=== PATIENT | female | born 1975 | race Caucasian/White ===

== ENCOUNTER 2021-03-05 07:55 | Outpatient (CLI) | payer BC, OTHER, SELFPAY ==
--- NOTE | ~2021-03-05 | CT_ITS ---
EXAMINATION: CT soft tissue neck w con EXAM DATE: 03/05/2021 08:31 INDICATION: Chronic sialoadenitis. Right facial, jaw, ear swelling. TECHNIQUE: Spiral CT of the neck was performed following intravenous injection of 75 mL Omnipaque 350 . Axial, coronal and sagittal images were reviewed. The dose-length product (DLP) for this examinat ion was 289.65 mGy-cm. The exposure was tailored according to patient size (auto mA exposure control ), and iterative reconstruction (ASIR) was used as additional dose reduction technique. There is no prior study for comparison. FINDINGS: No calcified sialolithiasis identified. Small right thyroid nodule. The submandibular and parotid glands are symmetric. There is no cervical lymphadenopathy. There are no masses identifie d. The superior mediastinum is unremarkable. The airway is unremarkable. Parapharyngeal and pr e-glottic fat planes are preserved. The opacified vasculature is patent. The orbits are unremarka ble. Visualized sinuses and mastoid air cells are well aerated. Lung apices unremarkable. Cervic al spine unremarkable. IMPRESSION: Small right thyroid lobe nodule. Otherwise unremarkable CT neck exam. Reviewed, dictated and finalized at location A. IMPRESSION: Small right thyroid lobe nodule. Otherwise unremarkable CT neck nati corey
== END 2021-03-05 07:56 | disposition home or self-care (01) ==
LOC: CHSIMG 08:00
PROVIDERS: PCP Internal Medicine; Visit Provider Internal Medicine
DX: K11.23 Chronic sialoadenitis (principal)
CPT/HCPCS: 70491; Q9967

== ENCOUNTER 2024-08-16 10:24 | Outpatient (RCR) | payer OTHER, SELFPAY ==
--- NOTE | 2024-08-16 15:54 | OPREHPOC ---
Outpatient Therapy Plan of Care This is a Multidisciplinary Plan of Care that may contain components documented by all disciplines (PT, OT, and ST.) PT Problem 1 PT Problem #1 Knowledge Deficit PT Goal 1 Goal / Goal Update Independent with HEP Target Visit 2 PT Problem 2 PT Problem #2 Impaired Strength PT Goal 1 Goal / Goal Update 1. Improve abdominal strength to 4/5. 2. Improve hip flexion strength to 5/5. 3. Improve hip abduction strength to 5/5. Target Visit 12 PT Problem 3 PT Problem #3 Impaired Functional Mobility PT Goal 1 Goal / Goal Update 1. Improve 5x sit to stand to 8 seconds 2. Pt to independently move from supine to sitting without pain for excessive tension on chest or upper extremities Target Visit 12
--- NOTE | 2024-08-16 15:54 | PTOPEVAL1 ---
Assessment and note entered by Mariela Cancino, PT Evaluation Information Assessment Status Evaluation Diagnosis Malignant neoplasm of lower-outer quadrant of left breast ICD-10 Condition Codes (PT) Weakness R53.1 Onset September 14, 2023 Subjective Information Mrs. Ramos presents to physical therapy for core strengthening to prepare for breast reconstruction surgery. She was diagnosed with breast cancer in September 2023 and has undergone 4 total surgeries in the last year for mastectomy and reconstruction . She currently has bilateral inserted tissue expanders and is having an additional surgery in November to complete the breast reconstruction process. She states the skin and muscles over her chest are very thin and her expanders have burst out of the chest in the past and is under movement and lifting restrictions from her physician, states I can't raise my arms above my shoulders and I can't lift more than a jug of milk. She is limited to lying on her back but sleeps reclined as she cannot move from supine to sitting without assistance. She recently got clearance to drive and states she is able to shower independently despite motion restrictions. Mrs. Ramos reports she is typically an active person but as of late she's been sedentary and has been trying to gait weight for her upcoming surgery. She reports her surgeon needs her to gain weight so there is enough abdominal fat to use for the reconstruction, and that her abdominals need to be strong to minimize weakness post- surgery. She states her main PT goal is to improve her core strength so she can move from lying on her back to sitting on her own. Reported Pain Level Pain Score 0: Self Report Additional Pain Score Comments Pt denies pain this date, states she has pain only when I move when I'm not supposed to Assessment PT Clinical Summary Mrs. Ramos is a 48 year old female presenting to physical therapy prior to breast reconstruction surgery in November. She was diagnosed with breast cancer in September 2023 and has undergone 4 surgeries in the last year for bilateral mastectomy and tissue rn manager insertion. She will be having another surgery in November of this year to finish the reconstruction process. She demonstrates core and hip weakness and and experiences difficulty with functional mobility tasks and ADLs due to upper extremity motion and lifting restrictions, as well as positioning restrictions when lying in bed. Her main goal for PT is to get stronger so she can move from lying on her back to sitting without help. Skilled PT services are indicated to improve core and hip strength prior to surgery to optimal surgical outcome and improve functional mobility. Plan of Care Interventions Gait Training,Manual Therapy,Neuro Re-education, Patient/Caregiver Education,Therapeutic Activities ,Therapeutic Exercise PT Services Indicated Yes Treatment Frequency and 2x weekly for 12 visits Duration These treatments will address the objective and functional deficits as defined above. The patient will be advanced safely and appropriately in order for the patient to progress towards his/her prior level of function. Additional exercises will be introduced and as well as a comprehensive home exercise program upon discharge, if needed, ?to ensure carryover of functional gains achieved in the clinic. This treatment plan has been reviewed and agreement upon by the patient.
--- NOTE | 2024-08-26 16:53 | PCPTNOTE ---
I reviewed the License Pending Therapist's documentation and agree with the findings.
--- NOTE | 2024-08-28 16:52 | PCPTNOTE ---
Pt entered clinic for her PT visit with complaints of an off feeling accompanied by lightheadness and headache, reported she feels like her blood pressure is high. States she felt fine upon waking up this morning but as the day went on she continued to feel worse. She contacted her doctor's office today to ask if this could be due to her medications, and she was told that it was not due to meds and pt scheduled an appointment to be seen by her doctor on Monday. Assessed pt's BP at start of session in sitting and it was 169/93. Reassessed after 5 minutes and BP was 163/99. At this time pt is not appropriate for PT treatment due to abnormally high BP. Escorted pt to her doctor's office across the street, office staff notified of BP readings and pt remained at the office for further assessment by nursing staff. Plan to follow up with pt and her doctor regarding abnormal vitals and pt to resume PT treatment pending clearance from her doctor.
--- NOTE | 2024-09-02 16:33 | PCPTNOTE ---
I reviewed the License Pending Therapist's documentation and agree with the findings.
--- NOTE | 2024-10-10 17:00 | OPREHPOC ---
Outpatient Therapy Plan of Care This is a Multidisciplinary Plan of Care that may contain components documented by all disciplines (PT, OT, and ST.) PT Problem 1 PT Problem #1 Knowledge Deficit PT Goal 1 Goal / Goal Update Independent with HEP Target Visit 2 Progress Met PT Problem 2 PT Problem #2 Impaired Strength PT Goal 1 Goal / Goal Update 1. Improve abdominal strength to 4/5. 2. Improve hip flexion strength to 5/5. 3. Improve hip abduction strength to 5/5. Target Visit 12 Progress Met PT Problem 3 PT Problem #3 Impaired Functional Mobility PT Goal 1 Goal / Goal Update 1. Improve 5x sit to stand to 8 seconds. met 2. Pt to independently move from supine to sitting without pain for excessive tension on chest or upper extremities Target Visit 12 Progress Partially Met
--- NOTE | 2024-10-10 17:00 | PTOPDC ---
Assessment and note entered by JT File, PT Evaluation Information Assessment Status Discharge Diagnosis Malignant neoplasm of lower-outer quadrant of left breast ICD-10 Condition Codes (PT) Weakness R53.1 Onset September 14, 2023 Subjective Information patient reports she has no pain at rest today. she reports going from supine to sitting still causes pain/pulling across her chest. she reports she has her 5th reconstruction in the next coming months. she will be back therapy after she is healed to improve her core strength and shoulder mobility. Reported Pain Level Pain Score 0: Self Report Assessment PT Clinical Summary mrs. levine presents to skilled PT for her 12th skilled therapy visit today. she displays improved core strength, improve hip strength, and improved cv and activity endurance. however, she still has pain across the chest when going from supine to sitting. she is going to have her 5th reconstruction in the next month or 2. she will then return to skilled PT after she is healed for core strengthening again. at this time, she will DC skilled PT, and continue with HEP independent at home. Plan of Care PT Services Indicated Yes
== END 2024-10-10 17:06 | disposition home or self-care (01) ==
LOC: CHSPT 10:24
DX: C50.512 Malignant neoplasm of lower-outer quadrant of left female breast (principal); Z17.0 Estrogen receptor positive status [ER+]; R53.1 Weakness
CPT/HCPCS: 97110; 97112; 97161; 97530

== ENCOUNTER 2025-02-10 14:01 | Outpatient (CLI) | payer OTHER, SELFPAY ==
--- NOTE | ~2025-02-10 | DEXA_ITS ---
Bone Density Report Name: SARAH MILTON Age: 49 Sex: Female Ethnicity: White Date of : 1975 Indication: postmenopausal; cancer; Referring Provider: GERMAN CANTRELL Study: Bone densitometry was performed. Exam Date: February 10, 2025 Accession number: [id number] Bone Density: Region BMD T-score Z-score Classification AP Spine(L1-L4) 1.065 0.2 0.7 Normal Femoral Neck (Left) 0.998 1.3 1.9 Normal Total Hip (Left) 1.088 1.2 1.6 Normal Femoral Neck (Right) 1.043 1.7 2.3 Normal Total Hip (Right) 1.069 1.0 1.4 Normal Total Hip Mean 1.079 1.1 1.5 Normal World Health Organization criteria for BMD impression classify patients as: Normal (T-score at or above -1.0), Osteopenia (T-score between -1.0 and -2.5), or Osteoporosis (T-score at or below -2.5). 10-year Fracture Risk: FRAX not reported because: All T-scores for Spine Total, Hip Total, Femoral Neck at or above -1.0 Clinical Information Provided by Patient: Has used the following medications: Vitamin D, Calcium, tamoxifen Has the following medical conditions: Cancer Patient maximum height was 67 Menopause Age: 48 No regular weight bearing exercise Drinks caffeinated beverages Onset of menses at age 15 Number of children 3 Impression: The patient has normal bone mass. Discussion: BONE DENSITY IS ABOVE THE MINIMUM DESIRABLE LEVEL AT ALL SKELETAL SITES TESTED. This patient?s bone mineral density is above the minimum desirable level (T-score -1.0 or better) at all sites measured. The patient should follow a healthful lifestyle (good nutrition with adequate calcium and vitamin D, and appropriate weight-bearing exercise). Follow-Up: Consider repeating this study in 5 years or sooner if there is some new clinical indication. Reported by: PATRICIA on 02/10/2025 4:13:00 PM. Reviewed, dictated and finalized at location A.
--- OUTSIDE RECORDS SUMMARY | 2025-02-10 14:19 | XMS_ITS | Encounter Summary ---
Author Organization [facility] Healthcare Address [address] [place] [address] Care Team Providers Care Chocolate Temperer Name Role Phone Ashley Shukla MD Primary Care Provider + [phone] Reason for Visit * Reason Comments PT Treatment * Consultation (Routine) - Closed Specialty Diagnoses / Procedures Referred By Contac t Referred To Contact Physical Therapy Diagnoses Malignant neoplasm of lower-outer quadrant of left breast of female, estrogen receptor positive (HCC) Chyna Gunter MD [address] [facility] [phone] [place] [address] Phone: tel: fax: [facility] [address] [place] [address] fax: Referral ID Status Reason Start Date Expiration Date V isits Requested Visits Authorized [id number] Closed Specialty Services Required 01/15/2025 02/14/2026 1 1 Encounter Details Date Type Department Care Team (Late st Contact Info) Description 01/24/2025 11:30 AM CDT Therapy [facility] at [place] [address] [place] [address] Medical Office [address] [place] [address] Digna Valdivia, PT Malignant neoplasm of lower-outer quadrant of left breast of female, estrogen receptor positive (HCC) (Primary Dx); S/P breast reconstruction Social History Tobacco Use Types Packs/Day Years Used Date Smoking Tobacco: Never Passive Smoke Exposure: Never Smokeless Tobacco: Never Alcohol Use Standard Drinks/Week Comments No 0 (1 standard drink = 0.6 oz pur e alcohol) AUDIT-C Answer Date Recorded Q1: How often do you have a drink containing alc ohol? Monthly or less 12/09/2024 Q2: How many drinks containi ng alcohol do you have on a typical day when you are drinking? 1 or 2 12/09/2024 Q3: How often do you have si x or more drinks on one occasion? Never 12/09/2024 Personal Safety Answer Date Recorded Have you ever been in or are you currently in a harmful physical or emotional relationship or is someone making you feel afraid or unsafe? Denies 12/09/2024 Comments No Sex and Gender Information Value Date Recorded Sex Assigned at Not on file Legal Sex Female 10:38 AM CDT Gender Identity Not on file Sexual Orientation Not on file documented as of this encounter Progress Notes * Digna Valdivia, PT - 01/24/2025 11:30 AM CDT [facility]: [facility] Physical Therapy Visit Patient Name: Rod Ramos Date of : 1975 Age/Sex: 49 y.o. / female Referring Practitioner: Chyna Gunter MD Follow-Up: Surgery scheduled 03/11/2025 Diagnosis(es): 1. Malignant neoplasm of lower-outer quadrant of left breast of female, estrogen receptor positive (HCC) 2. S/P breast reconstruction Date of Onset: 12/09/2024 Progress Report Period: 01/22/2025- Visit #: 2 Progress Report Due: Visit #10 Date: 01/24/2025 Start Time: 11:35 a.m. End Time: 12:34 p.m. Start Pain: 0/10 End Pain: 0/10 SUBJECTIVE: Patient reports she is looking forward to upcoming surgery 03/11/2025 and is hopeful this is for final surgery. Patient reports home program compliance and decreased feelings of edema following last session. OBJECTIVE: Patient completing diaphragmatic breathing with good form Patient with difficulty completing supine chest stretch due to increased feelings of tightness and pulling on incisions at chest and deferred this exercise at this time Patient completing home program with verbal and manual cues 25% of the time TREATMENT: Timed Treatment: Therapeutic Exercise for 15 minutes: Home exercise program issued and reviewed with handouts. Patient offered e-mail copy of exercises and voiced understanding of exercises. Exercise/ Activity Date: 01/22/25 Date: 01/24/25 Date: Date: Date: Diaphragmatic breathing 5 minutes 5 minutes Seated bilateral shoulder external rotation hands behind head 5x5s Supine shoulder external rotation with gentle traction to axilla 5x5s Deferred Self soft tissue mobilization of surgical incision 5 minutes 3 minutes Leg side with neutral spine stabilization x10 Bent knee fall out with neutral spine stabilization x10 Gentle lymphatic release stimulating axillary area and neck 5 minutes Flowsheet Gloria: X = performed, x = times/multiply, s = seconds, ea = each, st = stretch HEP 01/24/2025: From day 3 (24 Jan 2025) to 161 (01 Jul 2025): [1] Cording (Sets: 1 Reps: 7 Hold: 2s) [2] Breathing correctly, hands on ribs in supine; 01 (Sets: 1 Reps: 10) [3] Abdominal massage (skin), supine (Sets: 1 Reps: 1 Duration: 3m) [4] Supine Leg Slide (Sets: 1 Reps: 1 Duration: 10s) [5] Knee fall out Core/abdominal stabilization, supine; 01 (Sets: 1 Reps: 1) Manual Therapy- 29 min- gentle soft tissue mobilization with circular patterns to area superior andinferior to abdominal incision. Physical therapist provided soft tissue mobilization to area superior and inferior to abdominal incision and circular cupping strokes and with C&S strokes. Gentle soft tissue mobilization with movement to bilateral shoulders into shoulder flexion, abduction, and s caption with over pressure to anterior distal to axilla as not to stress healing incisions to chest. Supine stimulation of lymphatic system to abdominals with diaphragmatic breathing performed. Gentle soft tissue mobilization of abdomen with movement of bilateral lower extremities in supine. Gentlelymphatic stimulation to cervical and axillary lymph nodes. Un-timed Treatment: none No modalities performed at this date Total of Timed Treatment Codes: 54 minutes Total Treatment Time: 54 minutes ASSESSMENT: Patient tolerating diaphragmatic breathing and gentle soft tissue mobilization to abdomen well withdecreased feelings of tightness and swelling. Patient tolerated addition of gentle lymphatic stimulation to cervical and axillary lymph nodes well today with increased feeling of well-being after session. Patient compliance is evident with home program and patient is progressing well towards short-term goal 1. Patient tolerated advanced stretching and strengthening with addition of bent knee fallout and supine leg slides with attention to neutral lumbar spine with activity. Impression: Patient is a 49 y.o. female referred by Chyna Gunter to physical therapy for the followin. S/P breast reconstruction 2. Malignant neoplasm of lower-outer quadrant of left breast of female, estrogen receptor positive (HCC) Physical Impairments: AROM, Posture, and Pain Functional Limitations: Lymphatic drainage, Overhead reaching, and lifting and care of self Factors Impacting Physical Therapy: Comorbidities impacting physical therapy treatment: Personal factors: list Persons Involved:Patient Patient/Patient Family Understands and Agrees: Yes Prognosis: good Goals: Short Term Goals: 6 weeks 1. Patient to be independent with home program for self-management of symptoms.; progressing 2. Patient to improve bilateral shoulder flexion to greater than or equal to 100?? to increase easewith reaching tasks.; Initiated 3. Patient to improve bilateral shoulder abduction to greater than or equal to 90?? to improve capacity for self-care and ADLs.; Initiated 3. Patient to improve edema to level of umbilicus circumferential measurement to decrease by 2 cm.;Initiated Flat Folder Goals: 12 weeks 1. Patient to improve active range of motion bilateral shoulder flexion to greater than or equal to150?? to improve capacity for homemaking tasks.; Initiated 2. Patient to improve active range of motion bilateral shoulder abduction to greater than or equal to 130?? to improve capacity for dressing and bathing tasks periods; Initiated 3. Patient to improve edema to level of umbilicus circumferential measurement to decrease by 3.5 cm.; Initiated 4. Patient to improve functional capacity for upper extremity movement as evidenced by improved DASH score to less than or equal to 30% dysfunction.; Initiated PLAN: Continue skilled physical therapy per plan of care. Consider advancing gentle lower abdominal work with soft tissue mobilization. Frequency/Duration: 1-2 times per week for 12 weeks. Patient will receive the following treatments: [x] Home Exercise Program [x] Therapeutic Exercise [x] Therapeutic Activity [x] Manual Therapy PRN for manual lymphatic drainage, compression bandaging and/or soft tissue mobilization to address soft tissue restriction [] Gait Training PRN [x] Neuromuscular Re-Education PRN [x] Modalities PRN [x] Patient education on function and lymphedema management Digna Valdivia, PT [facility] MEDICAL OFFICE BUILDING [address] [facility] [address] [facility] MEDICAL OFFICE BUILDING [address], [address] [facility] [place] [address] Dept: [phone] Dept documented in this encounter Plan of Treatment Upcoming Encounters Date Type Department Care Team (Late st Contact Info) Description 03/11/2025 1:10 PM CDT Hospital Encounter [facility] [address] [place] [address] Chyna Gunter MD [id number] [place] [address] 03/11/2025 1:10 PM CDT - 03/11/2025 3:20 PM CDT Surgery [facility]) [address] [place] [address] Chyna Gunter MD [address] [facility] [phone] [place] [address] EXCISION CYST/LESION/MASS - TRUNK- bilateral dog ear excision Scheduled Procedures Name Priority Associated Diagnoses Date/Ti me EXCISION CYST/LESION/MASS - TRUNK H/O bilateral mastectomy 03/11/2025 1:10 PM CDT FAT GRAFTING H/O bilateral mastectomy 03/11/2025 1:10 PM CDT documented as of this encounter Visit Diagnoses Diagnosis H/O bilateral mastectomy- Primary Malignant neoplasm of lower-outer quadrant of left breast of female, estrogen receptor positive (HCC)- Primary S/P breast reconstruction Breast replaced by other means H/O bilateral mastectomy documented in this encounter Care Teams Chocolate Temperer Relationship Specialty Start Date End Date Ashley Shukla MD [address] [place] [address] PCP - General 05/31/17 documented as of this encounter
--- OUTSIDE RECORDS SUMMARY | 2025-02-10 14:19 | XMS_ITS | Encounter Summary ---
Author Organization [facility] Address [address] [place] [address] Phone Care Team Providers Care Acquisitions Assistant Name Role Phone Ashley Shukla MD Primary Care Provider + [phone] Encounter Details Date Type Department Care Team (Latest Contact Info) Description 12/28/2023 Orders Only [facility] Scanning, Provider Social History Tobacco Use Types Packs/Day Years Used Date Smoking Tobacco: Never Smokeless Tobacco: Never Alcohol Use Standard Drinks/Week Comments No 0 (1 standard drink = 0.6 oz pur e alcohol) AUDIT-C Answer Date Recorded Q1: How often do you have a drink containing alc ohol? Monthly or less 12/04/2023 Q2: How many drinks containi ng alcohol do you have on a typical day when you are drinking? 1 or 2 12/04/2023 Q3: How often do you have si x or more drinks on one occasion? Never 12/04/2023 Personal Safety Answer Date Recorded Have you ever been in or are you currently in a harmful physical or emotional relationship or is someone making you feel afraid or unsafe? Denies 12/04/2023 Comments No Sex and Gender Information Value Date Recorded Sex Assigned at Not on file Legal Sex Female 10:38 AM CDT Gender Identity Not on file Sexual Orientation Not on file documented as of this encounter Plan of Treatment Upcoming Encounters Date Type Department Care Team (Late Contact Info) Description 03/11/2025 1:10 PM CDT Hospital Encounter [facility] ([facility]) [address] [place] [id number] Chyna Gunter MD [address] [facility] [phone] [place] [address] 03/11/2025 1:10 PM CDT - 03/11/2025 3:20 PM CDT Surgery [facility] ([facility]) [address] [place] [address] Chyna Gunter MD [address] [facility] [phone] [place] [address] EXCISION CYST/LESION/MASS - TRUNK- bilateral dog ear excision Scheduled Procedures Name Priority Associated Diagnoses Date/Ti me EXCISION CYST/LESION/MASS - TRUNK H/O bilateral mastectomy 03/11/2025 1:10 PM CDT FAT GRAFTING H/O bilateral mastectomy 03/11/2025 1:10 PM CDT documented as of this encounter Procedures Procedure Name Priority Date/Time Associated Diagnosis Comments SCAN - PATHOLOGY 12/28/2023 documented in this encounter Results * SCAN - PATHOLOGY (12/28/2023) us Provider Scanning Final Result documented in this encounter Visit Diagnoses Not on filedocumented in this encounter Care Teams Acquisitions Assistant Relationship Specialty Start Date End Date Ashley Shukla MD [address] [place], [place] [id number] PCP - General 05/31/17 documented as of this encounter
--- OUTSIDE RECORDS SUMMARY | 2025-02-10 14:19 | XMS_ITS | Encounter Summary ---
Author Organization [facility] Address [address] [facility] [address] [place] [address] Phone Care Team Providers Care Liquefied Petroleum Gasfitter Name Role Phone Ashley Shukla MD Primary Care Provider + [phone] Encounter Details Date Type Department Care Team (Late st Contact Info) Description 02/10/2025 11:00 AM CDT Office Visit [facility] [address] [facility] 6th [place] [address] [place] [address] Chyna Gunter MD [address] [facility] [phone] [place] [address] Malignant neoplasm of lower-outer quadrant of left breast of female, estrogen receptor positive (HCC) (Primary Dx) Social History Tobacco Use Types Packs/Day Years [...] as of this encounter Progress Notes * Chyna Gunter MD - 02/10/2025 11:00 AM CDT Patient Name: Rod Ramos : 1975 TAMMI: 02/10/25 Referring Physician: Ashley Shukla MD HPI: History of Present Illness Rod Ramos is a 49 year old female who presents for follow-up regarding her upcoming revision surgery. She feels better and notes that her skin was previously shiny and tight, but she has lost fluid, which has improved her condition. She has been undergoing lymphatic massage on her abdomen, which she feels has been beneficial, resulting in a loss of two centimeters in fluid. She has not had any massage on her chest. She mentions that she has been sleeping on her back as sleeping on her side is uncomfortable due toa sensation of shifting. She is currently using a surgical bra and sometimes uses ABD pads, but shehas noticed that the pads cause her skin to become purple and red. She has stopped using the ABD pads due to this reaction. 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 She wants to return to work and is concerned about the intensity of her work post-surgery. Physical Examination: Physical Exam SKIN: Incision healed without issues. Flaps are softer and skin is more relaxed. One area of skin is more purple compared to others. Assessment/Plan: She is healing well. Is ready for her upcoming revision surgery next month. Assessment & Plan Post-surgical follow-up Ultrasound reassuring. Incisions and scars healed well. Flaps softening, skin relaxing. - Plan revision surgery in a month: excision of small abdominal areas, additional liposuction, lipofilling for breast. - Consider multiple fat grafting sessions for fullness. - Avoid pressure on breast and belly. - Continue lymphatic massage on belly only. - Sleep on back. - Use surgical bra, avoid ABD pads. 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 Contact dermatitis Possible early stage contact dermatitis from ABD pads, causing skin discoloration and sensitivity. - Discontinue use of ABD pads. I have reviewed and edited the entirety of the note to reflect my history, exam, and decision making. Ileana Gunter MD, PhD, [facility] buyer intern Division of Plastic & Reconstructive Surgery [facility] documented in this encounter Plan of Treatment Upcoming Encounters Date Type Department Care Team (Late st Contact Info) Description 03/11/2025 1:10 PM CDT Hospital Encounter [facility] [address] [place] [address] Chyna Gunter MD [phone] [place] [address] 03/11/2025 1:10 PM CDT - 03/11/2025 3:20 PM CDT Surgery [facility]) [address] [place] [address] Chyna Gunter MD [phone] [address] EXCISION CYST/LESION/MASS - TRUNK- bilateral dog ear excision Scheduled Procedures Name Priority Associated Diagnoses Date/Ti me EXCISION CYST/LESION/MASS - TRUNK H/O bilateral mastectomy 03/11/2025 1:10 PM CDT FAT GRAFTING H/O bilateral mastectomy 03/11/2025 1:10 PM CDT documented as of this encounter Visit Diagnoses Diagnosis H/O bilateral mastectomy- Primary Malignant neoplasm of lower-outer quadrant of left breast of female, estrogen receptor positive (HCC)- Primary H/O bilateral mastectomy documented in this encounter Care Teams Liquefied Petroleum Gasfitter Relationship Specialty Start Date End Date Ashley Shukla MD [address] [place] [address] PCP - General 05/31/17 documented as of this encounter
--- OUTSIDE RECORDS SUMMARY | 2025-02-10 14:19 | XMS_ITS | Encounter Summary ---
Author Organization [facility] Address [address] [place] [address] Care Team Providers Care Blueprint Maker Name Role Phone Ashley Shukla MD Primary Care Provider + [phone] Reason for Visit * Reason Comments PT Treatment * Consultation (Routine) - Closed Specialty Diagnoses / Procedures Referred By Contac t Referred To Contact Physical Therapy Diagnoses Malignant neoplasm of lower-outer quadrant of left breast of female, estrogen receptor positive (HCC) Chyna Gunter MD [address] [facility] [phone] [place] [address] Phone: tel: fax: [facility] [address] [place] [address] fax: Referral ID Status Reason Start Date Expiration Date V isits Requested Visits Authorized [id number] Closed Specialty Services Required 01/15/2025 02/14/2026 1 1 Encounter Details Date Type Department Care Team (Late st Contact Info) Description 01/29/2025 4:45 PM CDT Therapy [facility] [place] [address] [facility] Medical Office Building [address], [address] [place] [address] Digna Valdivia, PT Malignant neoplasm [...] Progress Notes * Digna Valdivia, PT - 01/29/2025 4:45 PM CDT [facility]: Sports Therapy [facility] Physical Therapy Visit Patient Name: Rod Ramos Date of : 1975 Age/Sex: 49 y.o. / female Referring Practitioner: Chyna Gunter MD Follow-Up: Surgery scheduled 03/11/2025 Diagnosis(es): 1. Malignant neoplasm of lower-outer quadrant of left breast of female, estrogen receptor positive (HCC) 2. S/P breast reconstruction Date of Onset: 12/09/2024 Progress Report Period: 01/22/2025- Visit #: 3 Progress Report Due: Visit #10 Date: 01/29/2025 Start Time: 4:36 p.m. End Time: 5:30 p.m. Start Pain: 0/10 End Pain: 0/10 SUBJECTIVE: Patient reports she is very pleased with progress in physical therapy. Patient reports home programcompliance and decreased feelings of edema following last session. OBJECTIVE: Patient completing diaphragmatic breathing with good form Patient with difficulty completing supine chest stretch due to increased feelings of tightness and pulling on incisions at chest and deferred this exercise at this time Patient completing home program with verbal and manual and verbal cues 15% of the time Circumferential measurement at umbilicus 85.7 cm TREATMENT: Timed Treatment: Therapeutic Exercise for 24 minutes: Home exercise program issued and reviewed with handouts. Patient offered e-mail copy of exercises and voiced understanding of exercises. Physical therapist added overhead reach to chest stretch to challenge range of motion. Advanced lower abdominal stretching and strengthening with combination of bent knee fall out and leg slide. Exercise/ Activity Date: 01/22/25 Date: 01/24/25 Date: 01/29/25 Date: Date: Diaphragmatic breathing 5 minutes 5 minutes 5 minutes Seated bilateral shoulder external rotation hands behind head 5x5s 5x5 to s added overhead reach Supine shoulder external rotation with gentle traction to axilla 5x5s Deferred Self soft tissue mobilization of surgical incision 5 minutes 3 minutes Leg side with neutral spine stabilization x10 x10 Bent knee fall out with neutral spine stabilization x10 x10 Bent knee fall out with leg slide x10 Gentle lymphatic release stimulating axillary area and neck 5 minutes 8 minutes Flowsheet Gloria: X = performed, x [...] 01 (Sets: 1 Reps: 1) Manual Therapy- 35 min- gentle soft tissue mobilization with circular [...] stimulation to cervical and axillary lymph nodes. Lymphatouch utilized using the following settings in order to address: Treatment Goal: Edema reduction and mobilization of fluid Treatment Area: Abdomen and Torso Pressure Settings: 100-150mmHg Vibration Settings: no vibration Treatment Mode: 2s/50% and 3s/50% Techniques Used: Stationary, LIft and Twist, Sliding, and Combo Filter replaced prior to use. Contraindications reviewed with patient and patient consent obtained.Educated patient regarding safe use of Lymphatouch, clinical purpose and on risks/benefits. Patientreported good tolerance throughout treatment session without skin breakdown or irritation noted post- treatment session. Un-timed Treatment: none No modalities performed at this date Total of Timed Treatment Codes: 59 minutes Total Treatment Time: 59 minutes ASSESSMENT: Patient tolerated addition of lymphoma touch for improved lymphatic stimulation and edema control well today. Patient with significant improvement in circumferential measurement at umbilicus since initial evaluation. Home program compliance is evident and patient is progressing well towards short-term goal 1. Patient tolerated advanced stretching and strengthening with addition of combined bent knee fall out and supine leg slides with attention to neutral lumbar spine with activity well today. Impression: Patient is a 49 y.o. female [...] circumferential measurement to decrease by 2 cm.;Initiated Sprayer Automatic Spray Machine Goals: 12 weeks 1. Patient to improve [...] function and lymphedema management Digna Valdivia, PT [facility] MEDICAL OFFICE BUILDING [address] [facility] [place] [address] [place] [address] MEDICAL OFFICE BUILDING [address], [address] [facility] [address] Dept: [phone] Dept documented in this encounter Plan of Treatment Upcoming Encounters Date Type Department Care Team (Late st Contact Info) Description 03/11/2025 1:10 PM CDT Hospital Encounter [facility] [address] [place] [address] Chyna Gunter MD [address] [facility] [phone] [place] [address] 03/11/2025 1:10 PM CDT - 03/11/2025 3:20 PM CDT Surgery [facility]) [address] [place] [address] Chyna Gunter MD [address] [facility] [phone] [place] [address] EXCISION CYST/LESION/MASS - TRUNK- bilateral dog ear excision Scheduled Procedures Name Priority Associated Diagnoses Date/Ti oh EXCISION CYST/LESION/MASS - TRUNK H/O bilateral mastectomy [...] mastectomy documented in this encounter Care Teams Blueprint Maker Relationship Specialty Start Date End Date Ashley Shukla MD [address] [place], [place] [id number] PCP - General 05/31/17 documented as of this encounter
--- OUTSIDE RECORDS SUMMARY | 2025-02-10 14:19 | XMS_ITS | Encounter Summary ---
Author Organization [facility] Healthcare Address [address] [place] [address] Care Team Providers Care Senior Integration Developer Name Role Phone Ashley Shukla MD Primary Care Provider + [phone] Reason for Visit * Reason Comments PT Initial Eval PT Treatment * Consultation (Routine) - Closed Specialty Diagnoses / Procedures Referred By Contac t Referred To Contact Physical Therapy Diagnoses Malignant neoplasm of lower-outer quadrant of left breast of female, estrogen receptor positive (HCC) Chyna Gunter MD [address] [facility] [phone] [place] [address] Phone: tel: fax: [facility] Orth[facility] Center [address] [place] [address] fax: Referral ID Status Reason Start Date Expiration Date V isits Requested Visits Authorized [id number] Closed Specialty Services Required 01/15/2025 02/14/2026 1 1 Encounter Details Date Type Department Care Team (Late st Contact Info) Description 01/22/2025 8:30 AM CDT Therapy [facility] [place] [address] [facility] Medical Office Building [address], [address] [place] [address] Digna Valdivia, PT S/P breast reconstruction (Primary Dx); Malignant neoplasm of lower-outer quadrant of left breast of female, estrogen receptor positive (HCC) Social History Tobacco Use Types Packs/Day Years [...] Progress Notes * Digna Valdivia, PT - 01/22/2025 8:30 AM CDT [facility]: Sports Therapy [facility] Rehabilitation [facility] Physical Therapy Evaluation and Plan of Care Patient Name: Rod Ramos Date of : 1975 Age/Sex: 49 y.o. / female Referring Practitioner: Chyna Gunter MD Follow-Up: Patient is scheduled for surgery 03/11/2025 for revision and fat grafting Referring Diagnosis: 1. S/P breast reconstruction 2. Malignant neoplasm of lower-outer quadrant of left breast of female, estrogen receptor positive (HCC) Date of Onset: 12/09/2024 Date: 01/22/2025 Start Time: 8:36 a.m. End Time: 9:45 a.m. Start Pain: 0/10 End Pain: 0/10 Medical screening was completed and the patient is appropriate for physical therapy. SUBJECTIVE: History: Onset/Injury: Patient with a history of breast cancer with multiple breast reconstruction surgeriesand currently experiencing edema to abdomen Chief Complaint: Swelling Previous therapy for this condition? No Pain Description: Location: Abdomen Quality: Tightness Current Intensity: 0/10 Minimal Intensity: 0/10 Maximal Intensity: 0/10 (using 0-10 numerical scale) Aggravating factors: Patient notes abdominal swelling and edema limiting capacity to wear pants, limiting capacity for transfers and ADLs and decreased range of motion to bilateral upper extremities as well as decreased strength and endurance Relieving factors: Patient notes slightly improved edema in a.m. and improved range motion with stretching Function: Prior Level of Function: Patient without abdominal edema prior to surgeries Patient Goals: Decrease edema Patient Reported Outcome Measure: Lymphedema Life Impact Scale (LLIS) Functional Outcome Measure: Initial Impairment: Deferred Goal: To be determined DASH: 40.0 % dysfunction Goal: 30% dysfunction or less Effect of elevation: improved Prior Hospitalization: Yes Prior Surgery: Yes; 6 surgeries with axillary and abdomninal swelling Past Surgical History: Procedure Laterality Date BREAST BIOPSY Left 10/16/2023 BREAST SURGERY Bilateral 12/04/2023 debridement/ tissue university administrator implanted BREAST SURGERY Bilateral 01/03/2024 tissue university administrator removed BREAST SURGERY 06/17/2024 Tissue Recovery Manager Insertion MASTECTOMY Bilateral 11/20/2023 INDOCYANINE GREEN IMAGING (SPY)+ CLOSURE WOUND WISDOM TOOTH EXTRACTION 1999 Lymph Node Removal: Yes; 3 on left Chemotherapy History: No Radiation History: No History of Infection: Yes; infection following university administrator placement 12/2023 Previous Treatment for Lymphedema: none Social History: patient at home with and 3 childen Activity Level: limited at this time Employed: Yes; 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 Yes Patient is able to transfer independently or modified independently? Yes Fall Risk Screening: Is the patient > 65 year of age? (49 y.o. ) Is the reason for the visit related to balance or falls? No Does the patient have a history of neurological impairment? No Stay Independent Brochure Score: N/A (> 4 helps identify those at risk for falls) Is this patient a fall risk?: No. Posture: Patient with slightly forward head and bilateral forward rounded shoulders with hands heldin internal rotation Balance within normal limits Edema: abdomen and bilateral axilla, .Non-Pitting Distribution of edema: diffuse Wounds/Incisions: open area with serosanguinous fluid to right breast and incision which was sharedwith physician, abdominal answers incision well healing with minimal dog eared appearance laterally Color changes: No color changes noted Sensation: Decreased above and below incisions to chest and abdomen Fibrosis/Scar Tissue: Patient with persists restricted soft tissue superior and inferior to abdominal incision and power mobility was not assessed at chest area due to incisions which continued to heal Skin Appearance: Erythema or signs of infection Movement Patterns: Patient ambulates with slightly forward posture and decreased stride length bilaterally with hands held in internal rotation and minimal arm swing Active Range of Motion of the shoulder Flexion: Left 82?? Right 82?? Abduction: Left 55?? Right 60?? External rotation: Elbow at side Left 72?? Right 70?? Internal rotation: Left: T9 Right: T11 Elbow flexion: Within normal limits bilaterally Elbow extension: Within normal limits bilaterally Strength (Manual Muscle Test): Shoulder Flexion: Left 4/5; Right 4/5 Shoulder Abduction: Left 4/5; Right 4/5 Shoulder Extension: Left 4+/5; Right 4+/5 Shoulder Internal Rotation: Left 5/5; Right 5/5 Shoulder External Rotation: Left 5/5; Right 5/5 Biceps: Left 5/5; Right 5/5 Triceps: Left 5/5; Right 5/5 Middle Trapezius: Left 3/5; Right 3/5 Lower trapezius: Left 2/5; Right 2/5 Stage 1: mild edema, no skin changes, resolves with elevation Circumference measurements Date: 01/22 Side: Left Right Index Finger 6.2 6.2 Metacarpals 19.5 18.6 Mid-hand 18.9 18.5 Wrist 16.3 14.5 4 cm from styloid 16.0 16.5 8 cm from styloid 18.2 18.5 12 cm from styloid 22.1 20.0 16 cm from styloid 24.4 23.2 20 cm from styloid 27.0 25.2 24 cm from styloid 26.4 25.0 28 cm from styloid 24.2 24.8 32 cm from styloid 26.0 26.0 36 cm from styloid 26.4 26.4 40 cm from styloid 27.2 27.5 44 cm from styloid 28.2 28.2 48 cm from styloid 31.0 31.6 Total: 358.0 350.6 Chest-mid breast Deferred due to healing incisions Umbillicus 87.8 cm Gloria: measurements in cm TREATMENT: Timed Treatment: Therapeutic Exercise for 15 minutes: Home exercise program issued and reviewed with handouts. Patient offered e-mail copy of exercises and voiced understanding of exercises. Exercise/ Activity Date: 01/22/25 Date: Date: Date: Date: Date: Diaphragmatic breathing 5 minutes Seated bilateral shoulder external rotation hands behind head 5x5s Supine shoulder external rotation with gentle traction to axilla 5x5s Self soft tissue mobilization of surgical incision 5 minutes Flowsheet Gloria: X = performed, x = times/multiply, s = seconds, ea = each, st = stretch Manual Therapy- 15 min- Education on self massage with circular patterns to area superior and inferior to abdominal incision. Physical therapist provided soft tissue mobilization to area superior andinferior to abdominal incision and circular pattern and with C&S strokes. Patient advised to limit mobilization to soft tissue to chest which continues to be healing. Supine stimulation of lymphatic system to abdominals with diaphragmatic breathing performed. HEP 01/22/2025: From day 1 (22 Jan 2025) to 2 (23 Jan 2025): [1] Cording (Sets: 1 Reps: 10 Hold: 5s) [2] Chest stretch (seated) (Sets: 10 Reps: 1 Hold: 5s) [3] Breathing correctly, hands on ribs in supine; 01 (Sets: 1 Reps: 10) [4] Abdominal massage (skin), supine (Sets: 1 Reps: 1 Duration: 3m) Initial Evaluation-Low Complexity initial evaluation completed in 25 minutes Untimed Treatment: 25 minutes Total of Timed Treatment Codes: 30 minutes Total Treatment Time: 55 minutes ASSESSMENT: Impression: Patient is a 49 y.o. female [...] with home program for self-management of symptoms.; Initiated 2. Patient to improve bilateral shoulder flexion to greater than or equal to 100?? to increase easewith reaching tasks.; Initiated 3. Patient to improve bilateral shoulder abduction to greater than or equal to 90?? to improve capacity for self-care and ADLs.; Initiated 3. Patient to improve edema to level of umbilicus circumferential measurement to decrease by 2 cm.;Initiated Senior Care Goals: 12 weeks 1. Patient to improve [...] or equal to 30% dysfunction.; Initiated PLAN: Frequency/Duration: 1-2 times per week for 12 weeks. Patient will receive the following treatments: [x] Home Exercise Program [x] Therapeutic Exercise [x] Therapeutic Activity [x] Manual Therapy PRN for manual lymphatic drainage, compression bandaging and/or soft tissue mobilization to address soft tissue restriction [] Gait Training PRN [x] Neuromuscular Re-Education PRN [x] Modalities PRN [x] Patient education on function and lymphedema management Thank you for this referral. Digna Valdivia, PT [facility] MEDICAL OFFICE BUILDING [address] [facility] [place] [address] [facility] MEDICAL OFFICE BUILDING [address], [address] [facility] [address] Dept: [phone] Dept documented in this encounter Plan of Treatment Upcoming Encounters Date Type Department Care Team (Late st Contact Info) Description 03/11/2025 1:10 PM CDT Hospital Encounter [facility]) [address] [place] [address] Chyna Gunter MD [address] [facility] [phone] [place] [address] 03/11/2025 1:10 PM CDT - 03/11/2025 3:20 PM CDT Surgery [facility] Operating [facility]) [address] [place] [address] Chyna Gunter MD [address] [facility] [phone] [place] [address] EXCISION CYST/LESION/MASS - TRUNK- bilateral dog ear excision Scheduled Procedures Name Priority Associated Diagnoses Date/Ti me EXCISION CYST/LESION/MASS - TRUNK H/O bilateral mastectomy 03/11/2025 1:10 PM CDT FAT GRAFTING H/O bilateral mastectomy 03/11/2025 1:10 PM CDT documented as of this encounter Visit Diagnoses Diagnosis H/O bilateral mastectomy- Primary S/P breast reconstruction- Primary Breast replaced by other means Malignant neoplasm of lower-outer quadrant of left breast of female, estrogen receptor positive (HCC) H/O bilateral mastectomy documented in this encounter Orders Outpatient Referral Count Last Ordered Date Fir st Ordered Date AMB REFERRAL ORDER TO PHYSICAL THERAPY 1 documented in this encounter Care Teams Senior Integration Developer Relationship Specialty Start Date End Date Ashley Shukla MD [address] [place] [address] PCP - General 05/31/17 documented as of this encounter
--- OUTSIDE RECORDS SUMMARY | 2025-02-10 14:20 | XMS_ITS | Clinical Summary ---
Author Organization [facility] 2 Address [address] [facility] [place] [address] Care Team Providers Care Quiller Hand Name Role Phone Ashley Shukla MD Primary Care Provider + [phone] Allergies Active Allergy Reactions Criticality Noted Date Comments Sulfa (Sulfonamide Antibiotics) Rash Medium 06/14 Medications MULTIVITAMIN ORALIndications:Ward pplement Take 1 tablet/capsule by mouth every evening Active tamoxifen (NOLVADEX) 20 mg tablet Take 1 tablet (20 mg total) by mouth daily 90 tablet 3 09/13/19 25 026 Active Additional Information Patient taking differently:20 mg oralDaily (early AM), 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, Informant: Self, Reported on 12/09/2024 calcium carb/vit D3/minerals (CALTRATE 600+D PLUS MINERALS ORAL) 08/15/19 25 Active losartan-hydroCHLO ROthiazide (HYZAAR) 50-12.5 mg per tabletIndications: hypertension Take 1 tablet by mouth every evening 10/11/19 25 Active cetirizine (ZyrTEC) 10 mg tabletIndications: Allergic Rhinitis Take 1 tablet (10 mg total) by mouth hose turner before breakfast Active acetaminophen (TYLENOL) 500 mg tablet Take 2 tablets (1,000 mg total) by mouth every 6 (six) hours 30 tablet 12/10/19 25 Active oxyCODONE (ROXICODONE) 5 mg immediate release tabletIndications: Pain Take 1 tablet (5 mg total) by mouth every 6 (six) hours as needed for pain 20 tablet 12/10/19 25 Active gabapentin (NEURONTIN) 100 mg capsule Take 1 capsule (100 mg total) by mouth 3 (three) times a day 90 capsule 12/10/19 25 026 Active cyclobenzaprine (FLEXERIL) 10 mg tablet Take 1 tablet (10 mg total) by mouth 3 (three) times a day as needed for muscle spasms 30 tablet 12/10/19 25 Active senna-docusate (PERICOLACE) 8.6-50 mg Take 1 tablet by mouth daily 30 tablet 12/10/19 25 Active celecoxib (CeleBREX) 200 mg capsule Take 1 capsule (200 mg total) by mouth 2 (two) times a day 60 capsule 12/10/19 25 Active ondansetron ODT (ZOFRAN-ODT) 4 mg disintegrating tablet Take 1 tablet (4 mg total) by mouth every 8 (eight) hours as needed for nausea or vomiting 20 tablet 12/10/19 25 Active hydrocortisone 2.5 % ointmentIndication s:skin rash Apply topically 2 (two) times a day Apply to affected areas. 30 g 12/19/19 25 Active diphenhydrAMINE (BENADRYL) 12.5 mg chewable tablet Take 1 tablet (12.5 mg total) by mouth every 6 (six) hours as needed for allergies 30 tablet 12/19/19 25 Active clotrimazole-betam ethasone (LOTRISONE) cream APPLY TO AFFECTED AREA TWICE DAILY FOR SEVEN DAYS 12/17/19 25 Active Intrarosa 6.5 mg insert INSERT ONE INSERT INTO VAGINA 2 TIMES WEEKLY AT NIGHT 12/04/19 25 Active cholecalciferol (VITAMIN D-3) 50,000 unit capsuleIndications :Vitamin D deficiency TAKE 1 CAPSULE (50,000 UNITS TOTAL) BY MOUTH ONCE A WEEK 4 capsule 1 01/08/20 25 Active doxycycline (VIBRAMYCIN) 100 mg capsuleIndications :Skin/Soft Tissue Infection Take 1 tablet/capsule (100 mg total) by mouth 2 (two) times a day for 10 days 20 tablet/capsu le 01/23/20 25 025 ciprofloxacin (CIPRO) 500 mg tabletIndications: Skin/Soft Tissue Infection Take 1 tablet (500 mg total) by mouth 2 (two) times a day for 14 days 28 tablet 01/25/20 25 025 Active Problems Problem Noted Date Diagnosed Date S/P breast reconstruction 12/09/2024 Absence of both breasts 01/01/2024 H/O bilateral mastectomy 11/28/2023 Malignant neoplasm of 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, estrogen receptor positive 10/31/2023 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, estrogen receptor positive 10/19/2023 Cancer Staging:Pathologic stage from 11/20/2023:Stage IA(pT1c, pN0(sn), cM0, G2, ER+, GA+, HER2-, Oncotype DX score: 9) - Unsigned Breast thickening 06/08/2017 Encounters Date Type Department Care Team Description 02/10/2025 11:00 AM CDT Office Visit [facility] Surgery [facility] 6th [place] [address] [place] [address] Chyna Gunter MD Malignant neoplasm of lower-outer quadrant of left breast of female, estrogen receptor positive (HCC) (Primary Dx) 02/07/2025 8:30 AM CDT Therapy [facility] at [address], [address] [place] [address] Digna Valdivia, PT Malignant neoplasm of lower-outer quadrant of left breast of female, estrogen receptor positive (HCC) (Primary Dx); S/P breast reconstruction 02/06/2025 Plan of Care Documentation [facility] at [address], [address] [place] [address] 01/29/2025 4:45 PM CDT Therapy [facility] at [address] Office [facility] 4, [address] [place] [address] Digna Valdivia, PT Malignant neoplasm of lower-outer quadrant of left breast of female, estrogen receptor positive (HCC) (Primary Dx); S/P breast reconstruction 01/29/2025 1:33 PM CDT - 01/29/2025 11:59 PM CDT Hospital Encounter [facility] ([facility]) [address] [place] [address] Chyna Gunter MD Malignant neoplasm of lower-outer quadrant of left breast of female, estrogen receptor positive (HCC) Discharge Disposition: Discharge to home or self care 01/24/2025 11:30 AM CDT Therapy [facility] at [address], [address] [place] [address] Digna Valdivia, PT Malignant neoplasm of lower-outer quadrant of left breast of female, estrogen receptor positive (HCC) (Primary Dx); S/P breast reconstruction 01/22/2025 8:30 AM CDT Therapy [facility] at [address], [address] [place] [address] Digna Valdivia, PT S/P breast reconstruction (Primary Dx); Malignant neoplasm of lower-outer quadrant of left breast of female, estrogen receptor positive (HCC) 01/10/2025 10:00 AM CDT Office Visit [facility] Surgery [address] [place] [address] 6th [place] [address] Chyna Gunter MD Malignant neoplasm of lower-outer quadrant of left breast of female, estrogen receptor positive (HCC) (Primary Dx); Family history of breast cancer 12/25/2024 9:45 AM CDT Office Visit [facility] Surgery [address] [facility] 6th [place] [address] Malignant neoplasm of lower-outer quadrant of left breast of female, estrogen receptor positive (HCC) (Primary Dx) 12/17/2024 Telephone [facility] Surgeon [address] [place] [address] Mendoza Mccain MD 12/10/2024 4:35 AM CDT - 12/10/2024 2:30 PM CDT Surgery [facility] Operating Room [address] [place] [address] Chyna Gunter MD RIGHT BREAST FLAP EXPLORATION 12/10/2024 4:18 AM CDT Anesthesia Event [facility] Operating Room [address] [place] [address] Linnea Solorzano MD Mehta, Divya, MD 12/10/2024 4:17 AM CDT Anesthesia Event [facility] Operating Room [address] [place] [address] Marav Ladd MD 12/09/2024 7:30 AM CDT - 12/09/2024 4:55 PM CDT Surgery [facility] ([facility]) [address] [place] [address] Chyna Gunter MD FREE FLAP DEEP INFERIOR EPIGASTRIC PERFORATORS 12/09/2024 7:29 AM CDT Anesthesia Event [facility] ([facility]) [address] [place] [address] Jamaal Duff MD Boggeman, Katherine A., NP 12/09/2024 5:29 AM CDT - 12/13/2024 9:05 AM CDT Hospital [address] [address] Chyna Gunter MD S/P breast reconstruction (Primary Dx) Discharge Disposition: Discharge to home or self care 11/14/2024 12:30 PM CDT Pre-Admission Testing [facility] for Preoperative Assessment and Planning [facility] ([facility]) [address] [place] [address] 11/14/2024 10:15 AM CDT Office Visit [facility] Oncology [address] [facility] [place] [address] [place] [address] Jameson Lopez MD Vitamin D deficiency (Primary Dx); Malignant neoplasm of lower-outer quadrant of left breast of female, estrogen receptor positive (HCC) 11/14/2024 9:15 AM CDT Lab [facility] Oncology Lab [address] [facility] Floor 5 [place] [address] Malignant neoplasm of lower-outer quadrant of left breast of female, estrogen receptor positive (HCC) 11/14/2024 9:00 AM CDT Lab [facility] - Lab Collection [address] [facility] Floor 5 [place] [address] Malignant neoplasm of lower-outer quadrant of left breast of female, estrogen receptor positive (HCC) from Last 3 Months Immunizations Immunization Administration Dates Next Due DT 07/12/2015 Influenza, Quadrivalent, Spl it, Intramuscular 06/04/2015,06/04/2014,08/28/2013 Influenza, Quadrivalent, Spl it, Preservative Free, Intramuscular 06/14/2018 Influenza, Trivalent, IM (MDV) 07/23/2012 Tdap 07/12/2015 Surgical History Surgery Date Site/Laterality Comments BREAST BIOPSY 10/16/2023 Left WISDOM TOOTH EXTRACTION 08/14/1999 - 08/13/2000 MASTECTOMY 11/20/2023 Bilateral INDOCYANINE GREEN IMAGING (SPY)+ CLOSURE WOUND BREAST SURGERY 12/04/2023 Bilateral debridement/ tissue roof truss machine tender implanted BREAST SURGERY 01/03/2024 Bilateral tissue roof truss machine tender removed BREAST SURGERY 06/17/2024 Tissue Die Developer Insertion BREAST RECONSTRUCTION 12/09/2024 Bilateral Flap reconstruction Medical History Medical History Date Comments Delayed emergence from general anesthesia Cancer (HCC) Breast cancer (HCC) 10/2023 Left Family History Medical History Relation Name Comments Breast cancer Maternal Grandmother Squamous cell carcinoma Mother Fami ly history of squamous cell carcinoma - (Added by TW Conv) Breast cancer Sister Malig Hyperthermia Neg Hx Pseudochol deficiency Neg Hx Relation Name Status Comments Maternal Grandmother Mother Sister Social History Tobacco Use Types Packs/Day Years Used Date Smoking Tobacco: Never Passive Smoke Exposure: Never Smokeless Tobacco: Never Tobacco Cessation:Counseling Given: Not Answered Alcohol Use Standard Drinks/Week Comments No 0 [...] on file Sexual Orientation Not on file Obstetrics History Para Term AB IAB SAB Ectopic Multiple Livin g Live Births 3 Date Outcome GA Total Labor Labor/2nd/3rd Weight Sex Type Anes PTL [place] A1 A5 Name Clin Last Filed Vital Signs Vital Sign Reading Time Taken Comments Blood Pressure 128/81 12/13/2024 3:00 AM CDT Pulse 76 12/13/2024 3:00 AM CDT Temperature 37 C (98.6 F) 12/13/2024 3:00 AM CDT Respiratory Rate 18 12/13/2024 3:00 AM CDT Oxygen Saturation 100% 12/13/2024 3:00 AM CDT Inhaled Oxygen Concentration - - Weight 67 kg (147 lb 11.3 oz) 01/29/2025 1:49 PM CDT Height 170.2 cm (5' 7) 01/29/2025 1:49 PM CDT Body Mass Index 23.13 01/29/2025 1:49 PM CDT Plan of Treatment Upcoming Encounters Date Type Department Care Team (Late st Contact Info) Description 03/11/2025 1:10 PM CDT Hospital Encounter [facility] [address] [place] [address] Chyna Gunter MD [address] [phone] [place] [address] 03/11/2025 1:10 PM CDT - 03/11/2025 3:20 PM CDT Surgery [facility]) [address] [place] [address] Chyna Gunter MD [address] [phone] [place] [address] EXCISION CYST/LESION/MASS - TRUNK- bilateral dog ear excision Scheduled Procedures Name Priority Associated Diagnoses Date/Ti me EXCISION CYST/LESION/MASS - TRUNK H/O bilateral mastectomy 03/11/2025 1:10 PM CDT FAT GRAFTING H/O bilateral mastectomy 03/11/2025 1:10 PM CDT Health Maintenance Due Date Last Done Comments Cervical Cancer Screening 1977 Colon Cancer Screening-Colonoscopy 1977 Depression Screening 1977 Hepatitis B Screening 12/27/1995 Regular Well Visit/Exam 18-64 12/27/1995 Pneumococcal vaccine <65 (1 of 2 - PCV) 1996 Zoster Vaccine (1 of 2) 1996 Breast Cancer Screening-Mammogram 04/06/2024 04/06/2023, 02/10/2022, 01/28/2021, Additional history exists Influenza Vaccine (Season Ended) 2025 06/14/2018, 06/04/2015, 06/04/2014, Additional history exists DTaP/Tdap/Td Vaccine (3 - Td or Tdap) 07/12/2025 07/12/2015, 07/12/2015 Hepatitis C Screening Completed 03/28/2024 Medical Devices Implanted Type Area Senior Manager [employer] Device Identifier Shelf Expiration Date Model / Serial / Lot [employer] Magtrace Liquid Marker 10 Vial Carton [id number] - [id number] Implanted:Qty: 1 on 11/20/2023 by Raissa Serrano MD at [facility] Other - see comments Left: Breast [employer] 02/07/2025 [id number] / / [id number] [employer] Guide 15ga Coaxial Needle Ultrasound Breast Boipsy Coil 1 Titanium Hydromark 4009-09-28-T1 - [id number] Implanted:Qty: 1 on 10/16/[address] [facility] Left: Breast [employer] [id number]--T1 / / [id number] MightyNestsuki Scandia 2.5mm Ring Pin Ultrasonic Doppler 20mhz House Steward/Stewardess Anastomosis Latex Free 2753 - [id number] Implanted:Qty: 1 on 12/09/2024 by Chyna Gunter MD at [facility] Right: Breast Vitasoft Sandy [id number] 05/10/2029 2753 / / [id number] Transgenomic Scandia 2.5mm Ring Pin Ultrasonic Doppler 20mhz House Steward/Stewardess Anastomosis Latex Free 275 - [id number] Implanted:Qty: 1 on 12/09/2024 by Chyna Gunter MD at [facility] Left: Breast MightyNestsuki [id number] 05/10/2029 2753 / / [id number]- [id number] Explanted Type Area Senior Manager [employer] Device Identifier Shelf Expiration Date Model / Serial / Lot [employer] Die Developer Breast Ultra High Profile Round Smooth Artoura Plus 350cc Silicone [id number] - [id number] Implanted:Qty : 1 on 12/04/2023 by Chyna Gunter MD at [facility] Explanted:Qty : 1 on 01/03/2024 by Chyna Gunter MD at [facility] Left: Breast [employer] [id number] 10/08/[address] / / [id number] [employer] Die Developer Breast Ultra High Profile Round Smooth Artoura Plus 350cc Silicone [id number] - [id number] Implanted:Qty : 1 on 12/04/2023 by Chyna Gunter MD at [facility] Explanted:Qty : 1 on 01/03/2024 by Chyna Gunter MD at [facility] Right: Breast [employer] [id number] 10/08/[address] / / [id number] Storage [employer] Implant Mammary Natrelle Te Smooth 576c-Eq-44-T With Fourte 926h-Hj-86-T - [id number] - [id number] Implanted:Qty : 1 on 06/17/2024 by Chyna Gunter MD at [facility] Explanted:Qty : 1 on 12/09/2024 at [facility] Right: Breast [employer] [id number] 10/09/2028 133S-FX-1 1-T / [id number] / [employer] Implant Mammary Natrelle Te Smooth 725f-Nh-14-T With Fourte 582b-Nz-97-T - [id number] - [id number] Implanted:Qty : 1 on 06/17/2024 by Chyna Gunter MD at [facility] Explanted:Qty : 1 on 12/09/2024 by Chyna Gunter MD at [facility] Left: Breast [employer] [id number] 05/09/2028 133S-FX-1 1-T / [id number] / Procedures Procedure Name Priority Date/Time Associated Diagnosis Comments US CHEST BREAST RELATED Schedule Routine, Read Routine (OP Routine) 01/29/2025 2:10 PM CDT Malignant neoplasm of lower-outer quadrant of left breast of female, estrogen receptor positive (HCC) B CHECK SAMPLE STAT 12/10/2024 11:00 AM CDT CBC WITHOUT DIFFERENTIAL Routine 12/10/2024 9:56 AM CDT TYPE AND SCREEN Timed 12/10/2024 9:56 AM CDT ANESTHESIA INTUBATION Routine 12/10/2024 4:38 AM CDT FREE FLAP DEEP INFERIOR EPIGASTRIC PERFORATORS 12/10/2024 4:18 AM CDT S/P breast reconstruction EGFR Timed 12/09/2024 10:40 PM CDT DIFFERENTIAL AUTO Timed 12/09/2024 10:40 PM CDT CBC WITH AUTO DIFFERENTIAL Timed 12/09/2024 10:40 PM CDT BASIC METABOLIC PANEL Timed 12/09/2024 10:40 PM CDT GA AN PROCEDURE PLACEHOLDER Routine 12/09/2024 8:32 AM CDT GA AN PROCEDURE PLACEHOLDER Routine 12/09/2024 8:31 AM CDT GA AN ELECTIVE ENDOTRACHEAL AIRWAY Routine 12/09/2024 8:31 AM CDT CAPSULECTOMY BREAST 12/09/2024 7 :33 AM CDT H/O bilateral mastectomy Special Needs general, supine, 0.25%marcaine+epi, plastic tray, inpt vac, prevena plus, clips: micro/gem, small, medium, disposable acland clamps, hep saline+pap in anterior chamber syringe, doppler, microscope, micro instruments, SPY REMOVAL TISSUE WEATHERIZATION SPECIALIST 12/09/2024 7:33 AM CDT H/O bilateral mastectomy Special Needs general, supine, 0.25%marcaine+epi, plastic tray, inpt vac, prevena plus, clips: micro/gem, small, medium, disposable acland clamps, hep saline+pap in anterior chamber syringe, doppler, microscope, micro instruments, SPY FREE FLAP DEEP INFERIOR EPIGASTRIC PERFORATORS 12/09/2024 7:33 AM CDT H/O bilateral mastectomy Special Needs general, supine, 0.25%marcaine+epi, plastic tray, inpt vac, prevena plus, clips: micro/gem, small, medium, disposable acland clamps, hep saline+pap in anterior chamber syringe, doppler, microscope, micro instruments, SPY POCT HCG, URINE Routine 12/09/2024 6:07 AM CDT EGFR Routine 11/14/2024 9:09 AM CDT Malignant neoplasm of lower-outer quadrant of left breast of female, estrogen receptor positive (HCC) DIFFERENTIAL AUTO Routine 11/14/2024 9:0 9 AM CDT Malignant neoplasm of lower-outer quadrant of left breast of female, estrogen receptor positive (HCC) CBC WITH AUTO DIFFERENTIAL Routine 11/14/2024 9:09 AM CDT Malignant neoplasm of lower-outer quadrant of left breast of female, estrogen receptor positive (HCC) COMPREHENSIVE METABOLIC PANEL Routine 11/14/2024 9:09 AM CDT Malignant neoplasm of lower-outer quadrant of left breast of female, estrogen receptor positive (HCC) VITAMIN D 25 HYDROXY Routine 11/14/2024 9:09 AM CDT Malignant neoplasm of lower-outer quadrant of left breast of female, estrogen receptor positive (HCC) HEPATITIS PANEL, ACUTE Routine 03/28/2024 9:46 AM CDT Malignant neoplasm of lower-outer quadrant of left breast of female, estrogen receptor positive (HCC) SCREENING MAMMOGRAM BILATERAL W NITISH Schedule Routine, Read Routine (OP Routine) 04/06/2023 2:57 PM CDT At high risk for breast cancer FREE FLAP DEEP INFERIOR EPIGASTRIC PERFORATORS S/P breast reconstruction from Last 3 Months or Most Recently Relevant to Health Maintenance Results * US Chest Breast Related (01/29/2025 2:10 PM CDT) Anatomical Region Laterality Modality Chest N/A Ultrasound 01/29/2025 2:15 PM CDT Impressions 01/29/2025 2:29 PM CDT Wound dehiscence with nonorganized fluid just deep to this area. No drainable fluid collection. Recommend continued clinical follow-up for suspected infection. OVERALL FINAL ASSESSMENT: BI-RADS Category 2: Benign. RECOMMENDATION: Continued clinical follow-up is recommended. Dictated by: Reji Pandey MD The radiology attending physician has personally reviewed this study, and had reviewed and/or edited this written report and agrees with it. Electronically signed by: Isabelle Portlilo M.D. Narrative 01/29/2025 2:29 PM CDT EXAMINATION: RIGHT BREAST ULTRASOUND HISTORY: 49-year-old woman with history of left invasive ductal carcinoma status post bilateral mastectomy in November 2023 who recently underwent bilateral flap reconstruction 12/09/2024 presenting with right wound dehiscence and drainage to evaluate for underlying fluid collection. COMPARISON: Diagnostic ultrasound 01/01/2024 TECHNIQUE: Directed ultrasound evaluation of the RIGHT breast was performed. ULTRASOUND FINDINGS: Limited sonogram of the right breast flap reveals an area of wound dehiscence with a small amount of nonorganized fluid in the deeper tissues. No drainable fluid collection. There is surrounding hyperemia. No suspicious mass or lymph node. Chyna Gunter MD IMG MAMMO PROCED URES Final Result * Check Sample (12/10/2024 11:00 AM CDT) Pathologist [facility] ABO Rh A Positive [facility] HCLL OTHER 12/10/2024 11:0 0 AM CDT 12/10/2024 11:36 AM CDT Chyna Gunter MD LAB BLOOD ORDERA BLES Final Result [facility] [place] [address] [facility] * (ABNORMAL) CBC without differential (12/10/2024 9:56 AM CDT) Pathologist [facility] WBC 8.66 3.80 - 9.90 K/cumm Hgb 9.4(L) 11.9 - 15.5 g/dL [facility] Hct 27.6(L) 35.6 - 45.5 % [facility] Plt 174 150 - 400 K/cumm [facility] MPV 10.8 9.1 - 12.3 fL [facility] RBC 3.19(L) 3.90 - 5.20 M/cumm [facility] MCV 86.5 81.3 - 96.4 fL [facility] MCH 29.5 27.1 - 33.3 pg [facility] MCHC 34.1 32.3 - 35.7 g/dL [facility] RDW CV 13.6 11.1 - 14.9 % [facility] RDW SD 42.7 35.7 - 48.1 fL [facility] NRBC abs 0.00 0.00 - 0.01 K/cumm [facility] Blood 12/10/2024 9:56 AM CDT 12/10/2024 10:34 AM CDT Chyna Gunter MD LAB BLOOD ORDERA BLES Final Result Performing Organization Address [facility] Co de Phone Number [facility] [place] [address] * Type and screen (12/10/2024 9:56 AM CDT) [place], indirect Negative ABO Rh A Positive [facility] Blood 12/10/2024 9:56 AM CDT 12/10/2024 10:50 AM CDT Narrative [facility] - 12/10/2024 11:50 AM CDT Has the patient had Daratumumab or Isatuximab in the past 6 months?->Unknown Chyna Gunter MD LAB BLOOD BANK T EST ORDERABLES Final Result Performing Organization Address [facility] Co de Phone Number [facility] Department [place] [address] * Airway (12/10/2024 4:38 AM CDT) Narrative Inocencio Machuca MD - 12/10/2024 4:38 AM CDT Inocencio Machuca MD 12/10/2024 4:39 AM Airway Patient location: OR Urgency: elective Indications for airway management: anesthesia Difficult airway: no Staff: Supervising provider: Linnea Solorzano MD Placed by: Resident: Inocencio Machuca MD Emergent airway documentation: Risks and benefits discussed: yes Consent obtained: yes Consent given by: patient Airway prep: Preoxygenated: yes Patient position: sniffing Mask difficulty assessment: 0 - not attempted Spontaneous ventilation during airway: absent Sedation level during airway: GA Final airway details: Final airway type: endotracheal airway Tube type: ETT ETT size: 7.0 mm Cuffed: yes Technique used for successful ETT placement: video laryngoscopy Devices/Methods used in placement: stylet Insertion site: oral Blade type: Esteban Video blade type: Rao Blade size: 3 Cormack-Lehane (video): grade I - full view of glottis Cuff volume: 8 mL Cuff inflated with: air ETT to lips: 22 cm Placement verified by: auscultation and CO2 detection Airway secured with: silk tape Number of attempts: 2 Unsuccessful approach(es) for ETT: direct laryngoscopy Planned trial extubation: yes Additional comments: Anterior airway, small mouth opening Linnea Solorzano MD ANESTHESIA ORDERABLES Fi nal Result * eGFR (12/09/2024 10:40 PM CDT) eGFR >90 >=60 mL/min/1. 73 m2 Comment: Interpretive Data Reference Interval Normal >/= 90 mL/min/1.73m2 Mildly decreased* 60 - 89 mL/min/1.73m2 Mildly to moderately decreased 45 - 59 mL/min/1.73m2 Moderately to severely decreased 30 - 44 mL/min/1.73m2 Severely decreased 15 - 29 mL/min/1.73m2 Kidney Failure < 15 mL/min/1.73m2 *Relative to young adult level Estimated glomerular filtration rate is determined by the 2020 CKD-EPI equation recommended by the [employer] (A Unifying Approach to GFR Estimation: Recommendations of the NKF-ASK Task Force on Reassessing the Inclusion of Race in Diagnosing Kidney Disease, JASN 2020). The CKD-EPI equation should not be used for patients with unstable renal function and has not been validated in children and those over 70. Current interpretive data was last reviewed 2021. Blood 12/09/2024 10:4 0 PM CDT 12/09/2024 11:11 PM CDT us Chyna Gunter MD LAB BLOOD ORDERA BLES Final Result [facility] [place] [address] * (ABNORMAL) Differential, auto (12/09/2024 10:40 PM CDT) Neutrophil abs 10.16(H) 1.50 - 6.50 K/cumm Imm gran abs 0.05 0.00 - 0.10 K/cumm [facility] Lymphocyte abs 0.69(L) 0.80 - 3.30 K/cumm [facility] Monocyte abs 0.73 0.20 - 0.80 K/cumm [facility] Eosinophil abs 0.00 0.00 - 0.50 K/cumm [facility] Basophil abs 0.01 0.00 - 0.10 K/cumm [facility] Neutrophil pct 87.3 % [facility] Comment: Interpretive Data Percent cell count reference ranges are not reported, since discordance with absolute values may lead to misinterpretation of CBC data. Current Interpretive Data was last revised on 2017. Imm gran pct 0.4 % [facility] Comment: Interpretive Data Percent cell count reference ranges are not reported, since discordance with absolute values may lead to misinterpretation of CBC data. Current Interpretive Data was last revised on 2017. Lymphocyte pct 5.9 % [facility] Comment: Interpretive Data Percent cell count reference ranges are not reported, since discordance with absolute values may lead to misinterpretation of CBC data. Current Interpretive Data was last revised on 2017. Monocyte pct 6.3 % [facility] Comment: Interpretive Data Percent cell count reference ranges are not reported, since discordance with absolute values may lead to misinterpretation of CBC data. Current Interpretive Data was last revised on 2017. Eosinophil pct 0.0 % [facility] Comment: Interpretive Data Percent cell count reference ranges are not reported, since discordance with absolute values may lead to misinterpretation of CBC data. Current Interpretive Data was last revised on 2017. Basophil pct 0.1 % [facility] Comment: Interpretive Data Percent cell count reference ranges are not reported, since discordance with absolute values may lead to misinterpretation of CBC data. Current Interpretive Data was last revised on 2017. Blood 12/09/2024 10:4 0 PM CDT 12/09/2024 11:12 PM CDT Chyna Gunter MD LAB BLOOD ORDERA BLES Final Result [facility] [place] [address] * (ABNORMAL) CBC with auto differential (12/09/2024 10:40 PM CDT) WBC 11.64(H) 3.80 - 9.90 K/cumm Hgb 9.9(L) 11.9 - 15.5 g/dL [facility] Hct 28.3(L) 35.6 - 45.5 % [facility] Plt 158 150 - 400 K/cumm [facility] MPV 10.8 9.1 - 12.3 fL [facility] RBC 3.35(L) 3.90 - 5.20 M/cumm [facility] MCV 84.5 81.3 - 96.4 fL [facility] MCH 29.6 27.1 - 33.3 pg [facility] MCHC 35.0 32.3 - 35.7 g/dL [facility] RDW CV 13.3 11.1 - 14.9 % [facility] RDW SD 41.4 35.7 - 48.1 fL [facility] NRBC abs 0.00 0.00 - 0.01 K/cumm [facility] Blood 12/09/2024 10:4 0 PM CDT 12/09/2024 11:12 PM CDT us Chyna Gunter MD LAB BLOOD ORDERA BLES Final Result [facility] [place] [address] * (ABNORMAL) Basic metabolic panel (12/09/2024 10:40 PM CDT) Sodium 142 135 - 145 mmol/L Potassium, pl 3.8 3.3 - 4.9 mmol/L [facility] Chloride 107 97 - 110 mmol/L [facility] CO2 27 22 - 32 mmol/L [facility] Anion gap 8 2 - 15 mmol/L [facility] BUN 8 6 - 25 mg/dL [facility] Creatinine 0.63 0.60 - 1.10 mg/dL [facility] Glucose 139 70 - 199 mg/dL [facility] Comment: Interpretive Data Fasting glucose >/= 126 mg/dl is diagnostic for diabetes. Fasting is defined as no caloric intake for at least 8 hours. Fasting glucose between 100 mg/dl to 125 mg/dl is diagnostic of prediabetes. In a patient with classic symptoms of hyperglycemia or hyperglycemic crisis, a random glucose >/= 200 mg/dl is diagnostic for diabetes. In the absence of unequivocal hyperglycemia, results should be confirmed by repeat testing. The classification and Diagnosis of Diabetes Diabetes Care 2021; 46: S19-S40. Current interpretive data was last revised 2022. Calcium 8.3(L) 8.5 - 10.3 mg/dL [facility] Blood 12/09/2024 10:4 0 PM CDT 12/09/2024 11:11 PM CDT Chyna Gunter MD LAB BLOOD ORDERA BLES Final Result [facility] [place] [address] * GA AN PROCEDURE PLACEHOLDER (12/09/2024 8:32 AM CDT) Narrative Stephanie Perez CRNA - 12/09/2024 8:32 AM CDT Stephanie Perez CRNA 12/09/2024 8:33 AM Peripheral IV Catheter Patient location: OR Staff: Placed by: WEB SUPPORT ENGINEER: Stephanie Perez CRNA Preprocedure prep: Prep solution: alcohol PPE: gloves PIV line: Laterality: right Site: wrist Catheter size: 18 g Technique: direct visualization and anatomical landmarks Procedure details: good blood return Number of attempts: 1 Assessment: Events: patient tolerated procedure well with no complications Jamaal Duff MD ANESTHESIA ORDERABLES Final Result * GA AN ELECTIVE ENDOTRACHEAL AIRWAY, GA AN PROCEDURE PLACEHOLDER (12/09/2024 8:31 AM CDT) Narrative Stephanie Perez CRNA - 12/09/2024 8:31 AM CDT Stephanie Perez CRNA 12/09/2024 8:32 AM Airway Patient location: OR Urgency: elective Date/time: 12/09/2024 7:46 AM Indications for airway management: anesthesia Difficult airway: no Staff: Supervising provider: Jamaal Duff MD Placed by: WEB SUPPORT ENGINEER: Stephanie Perez CRNA Emergent airway documentation: Risks and benefits discussed: yes Consent obtained: yes Consent given by: patient Airway prep: Preoxygenated: yes Patient position: sniffing Mask difficulty assessment: 0 - not attempted Spontaneous ventilation during airway: absent Sedation level during airway: GA Final airway details: Final airway type: endotracheal airway Tube type: ETT ETT size: 7.0 mm Cuffed: yes Technique used for successful ETT placement: video laryngoscopy Devices/Methods used in placement: stylet Insertion site: oral Blade type: Esteban Video blade type: Rao Blade size: 3 Cormack-Lehane (video): grade I - full view of glottis Cuff volume: 7 mL Cuff inflated with: air ETT to teeth: 21 cm Placement verified by: auscultation and CO2 detection Airway secured with: silk tape Number of attempts: 1 Ventilation between attempts: none Jamaal Duff MD ANESTHESIA ORDERABLES Final Result * POCT hCG, urine (12/09/2024 6:07 AM CDT) HCG, ur, POC Negative Negative Lot Number [id number] QC Backgroud Clear Acceptable QC Control Line Acceptable Urine 12/09/2024 6:07 AM CDT us Holli Staples [employer] POINT OF CARE TEST KSENIA HE Final Result * eGFR (11/14/2024 9:09 AM CDT) Pathologist [facility] eGFR >90 >=60 mL/min/1. 73 m2 Comment: Interpretive Data Reference Interval Normal >/= 90 mL/min/1.73m2 Mildly decreased* 60 - 89 mL/min/1.73m2 Mildly to moderately decreased 45 - 59 mL/min/1.73m2 Moderately to severely decreased 30 - 44 mL/min/1.73m2 Severely decreased 15 - 29 mL/min/1.73m2 Kidney Failure < 15 mL/min/1.73m2 *Relative to young adult level Estimated glomerular filtration rate is determined by the 2020 CKD-EPI equation recommended by the National Kidney Foundation (A Unifying Approach to GFR Estimation: Recommendations of the NKF-ASK Task Force on Reassessing the Inclusion of Race in Diagnosing Kidney Disease, JASN 2020). The CKD-EPI equation should not be used for patients with unstable renal function and has not been validated in children and those over 70. Current interpretive data was last reviewed 2021. Blood 11/14/2024 9:09 AM CDT 11/14/2024 9:12 AM CDT Jameson Lopez MD LAB BLOOD ORDERABLES Final Resul t [facility] [place] [address] * Differential, auto (11/14/2024 9:09 AM CDT) Pathologist [facility] Neutrophil abs 2.38 1.50 - 6.50 K/cumm Comment:Testing performed by : [facility], [address] [place] [phone] Lymphocyte abs 1.74 0.80 - 3.30 K/cumm [facility] Comment:Testing performed by : [facility], [address] [place] [phone] Monocyte abs 0.55 0.20 - 0.80 K/cumm [facility] Comment:Testing performed by : [facility], [address] [place] [phone] Eosinophil abs 0.10 0.00 - 0.50 K/cumm [facility] Comment:Testing performed by : [facility], [address] [place] [phone] Basophil abs 0.08 0.00 - 0.10 K/cumm [facility] Comment:Testing performed by : [facility], [address] [place] [phone] Neutrophil pct 49.1 % [facility] Comment: Interpretive Data Percent cell count reference ranges are not reported, since discordance with absolute values may lead to misinterpretation of CBC data. Current Interpretive Data was last revised on 2017. Testing performed by: [facility], [address] [place] [phone] Lymphocyte pct 36.0 % [facility] Comment: Interpretive Data Percent cell count reference ranges are not reported, since discordance with absolute values may lead to misinterpretation of CBC data. Current Interpretive Data was last revised on 2017. Testing performed by: [facility], [address] [place] [phone] Monocyte pct 11.3 % [facility] Comment: Interpretive Data Percent cell count reference ranges are not reported, since discordance with absolute values may lead to misinterpretation of CBC data. Current Interpretive Data was last revised on 2017. Testing performed by: [facility], [address] [place] [phone] Eosinophil pct 2.0 % [facility] Comment: Interpretive Data Percent cell count reference ranges are not reported, since discordance with absolute values may lead to misinterpretation of CBC data. Current Interpretive Data was last revised on 2017. Testing performed by: [facility], [address] [place] [phone] Basophil pct 1.7 % [facility] Comment: Interpretive Data Percent cell count reference ranges are not reported, since discordance with absolute values may lead to misinterpretation of CBC data. Current Interpretive Data was last revised on 2017. Testing performed by: [facility], [address] [place] [address] Blood 11/14/2024 9:09 AM CDT 11/14/2024 9:10 AM CDT us Jameson Lopez MD LAB BLOOD ORDERABLES Final Resul t [facility] [place] [address] * CBC with auto differential (11/14/2024 9:09 AM CDT) WBC 4.85 3.80 - 9.90 K/cumm Comment:Testing performed by : [facility], [address] [place] [address] Hgb 13.3 11.9 - 15.5 g/dL [facility] Comment:Testing performed by : [facility], [address] [place] [address] Hct 39.6 35.6 - 45.5 % [facility] Comment:Testing performed by : [facility], [address] [place] [address] Plt 223 150 - 400 K/cumm [facility] Comment:Testing performed by : [facility], [address] [place] [address] MPV 8.6 6.8 - 10.4 fL [facility] Comment:Testing performed by : [facility], [address] [place] [address] RBC 4.66 3.90 - 5.20 M/cumm [facility] Comment:Testing performed by : [facility], [address] [place] [address] MCV 85.0 81.3 - 96.4 fL [facility] Comment:Testing performed by : [facility], [address] [place] [address] MCH 28.4 27.1 - 33.3 pg [facility] Comment:Testing performed by : [facility], [address] [place] [address] MCHC 33.5 32.3 - 35.7 g/dL [facility] Comment:Testing performed by : [facility], [address] [place] [address] RDW CV 13.6 11.1 - 14.9 % [facility] Comment:Testing performed by : [facility], [address] [place] [address] NRBC abs 0.00 0.00 - 0.01 K/cumm [facility] Comment:Testing performed by : [facility], [address] [place] [address] Blood 11/14/2024 9:09 AM CDT 11/14/2024 9:10 AM CDT Jameson Lopez MD LAB BLOOD ORDERABLES Final Resul t Performing Organization Address City/[facility] Co de Phone Number [facility] [place] [address] * (ABNORMAL) Vitamin D 25 hydroxy (11/14/2024 9:09 AM CDT) Vitamin D 25-OH 28(L) 30 - 80 ng/mL Blood 11/14/2024 9:09 AM CDT 11/14/2024 9:12 AM CDT Jameson Lopez MD LAB BLOOD ORDERABLES Final Resul t [facility] [place] [address] * Comprehensive metabolic panel (11/14/2024 9:09 AM CDT) Sodium 142 135 - 145 mmol/L Potassium, pl 3.8 3.3 - 4.9 mmol/L [facility] Chloride 103 97 - 110 mmol/L [facility] CO2 30 22 - 32 mmol/L [facility] Anion gap 9 2 - 15 mmol/L [facility] BUN 11 6 - 25 mg/dL [facility] Creatinine 0.71 0.60 - 1.10 mg/dL [facility] Glucose 77 70 - 199 mg/dL [facility] Comment: Interpretive Data Fasting glucose >/= 126 mg/dl is diagnostic for diabetes. Fasting is defined as no caloric intake for at least 8 hours. Fasting glucose between 100 mg/dl to 125 mg/dl is diagnostic of prediabetes. In a patient with classic symptoms of hyperglycemia or hyperglycemic crisis, a random glucose >/= 200 mg/dl is diagnostic for diabetes. In the absence of unequivocal hyperglycemia, results should be confirmed by repeat testing. The classification and Diagnosis of Diabetes Diabetes Care 2021; 46: S19-S40. Current interpretive data was last revised 2022. Calcium 9.7 8.5 - 10.3 mg/dL [facility] Bilirubin, total 0.2 0.1 - 1.2 mg/dL [facility] Protein, pl 6.8 6.5 - 8.5 g/dL [facility] Albumin 4.3 3.5 - 5.0 g/dL [facility] Alk phos 71 40 - 130 Units/L [facility] ALT 11 7 - 45 Units/L [facility] AST 18 10 - 45 Units/L [facility] Blood 11/14/2024 9:09 AM CDT 11/14/2024 9:12 AM CDT us Jameson Fajin MAURO LAB BLOOD ORDERABLES Final Resul t [facility] [place] [address] * Hepatitis panel, acute Blood (03/28/2024 9:46 AM CDT) Pathologist [facility] Hep A IgM Nonreactive Nonreactive Hep B core IgM Nonreactive Nonreactive [facility] Hep C Ab Nonreactive Nonreactive [facility] Comment:Antibodies to HCV no t detected. Does NOT exclude the possibility of recent exposure to HCV. Current interpretive data was last revised on 22 HepBsAg Nonreactive Nonreactive [facility] Blood 03/28/2024 9:46 AM CDT 03/28/2024 10:14 AM CDT us Jameson Lopez MD LAB MICROBIOLOGY - GENERAL ORDER LOCO Final Result [facility] [place] [address] * Screening Mammogram Bilateral W Nitish (04/06/2023 2:57 PM CDT) Anatomical Region Laterality Modality Breast Bilateral Mammography Narrative 04/07/2023 10:06 AM CDT Mammogram Technique: Bilateral Digital Breast Tomosynthesis, Bilateral C-view 2D Screening mammogram. Views obtained: bilateral craniocaudal and bilateral mediolateral oblique. Computer Aided Detection was performed. Mammogram Findings: The present examination has been compared to prior imaging studies performed at [facility] on 01/23/2020, 01/28/2021 and 02/10/2022. The breasts are extremely dense, which lowers the sensitivity of mammography. There is a focal asymmetry in the superior area of the right breast. There is no suspicious abnormality in the left breast. Impression: Focal asymmetry in the right breast requires additional evaluation. Diagnostic mammogram and possible ultrasound of the right breast are recommended at this time. OVERALL FINAL ASSESSMENT: BI-RADS CATEGORY 0: Incomplete: Need additional imaging evaluation. Procedure Note Isabelle Portillo MD - 04/07/2023 Mammogram Technique: Bilateral Digital Breast Tomosynthesis, Bilateral C-view 2D Screening mammogram. Views obtained: bilateral craniocaudal and bilateral mediolateral oblique. Computer Aided Detection was performed. Mammogram Findings: The present examination has been compared to prior imaging studies performed at [facility] on 01/23/2020, 01/28/2021 and 02/10/2022. The breasts are extremely dense, which lowers the sensitivity of mammography. There is a focal asymmetry in the superior area of the right breast. There is no suspicious abnormality in the left breast. Impression: Focal asymmetry in the right breast requires additional evaluation. Diagnostic mammogram and possible ultrasound of the right breast are recommended at this time. OVERALL FINAL ASSESSMENT: BI-RADS CATEGORY 0: Incomplete: Need additional imaging evaluation. Deepa Mims MD PhD IMG MAMMO PROCEDURES Final Result from Last 3 Months or Most Recently Relevant to Health Maintenance Insurance [employer] [facility] [employer] ACCESS [facility] CHOICE PLUS [address] [facility] CHOICE PLUS U[employer] [facility] Advance Directives For more information, please contact: [phone] * Full Code (Latest Code Status on File) Date Activated Date Inactivated Comments 12/09/2024 9:39 PM 12/13/2024 1:21 PM * Full Code Date Activated Date Inactivated Comments 01/01/2024 2:32 PM 01/02/2024 5:26 AM Care Teams Quiller Hand Relationship Specialty Start Date End Date Ashley Shukla MD [address] [place] [address] PCP - General 05/31/17
--- OUTSIDE RECORDS SUMMARY | 2025-02-10 14:20 | XMS_ITS ---
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 Past Treatment and Therapy Plans No past plan information found. Lifetime Dose Tracking * Chemical Lifetime Dose Automatic Entry Manual Entr y DLP 1,004 mGycm 1,004 mGycm 0 mGycm
--- OUTSIDE RECORDS SUMMARY | 2025-02-10 14:20 | XMS_ITS | Referral Summary ---
Author Organization [facility] Medical [facility] 2 Address [address] [facility] [place] [address] Care Team Providers Care [place] Buyer Name Role Phone Ashley Shukla MD Primary Care Provider [phone] Encounters Date Type Department Care Team Description 02/10/2025 11:00 AM CDT Office Visit [facility] Surgery [address] [facility] 6th [place] [address] [place] [phone] Chyna Gunter MD Malignant neoplasm of lower-outer quadrant of left breast of female, estrogen receptor positive (HCC) (Primary Dx) 02/07/2025 8:30 AM CDT Therapy [facility] at [address], [address] [place] [address] Digna Valdivia, PT Malignant neoplasm of lower-outer quadrant of left breast of female, estrogen receptor positive (HCC) (Primary Dx); S/P breast reconstruction 01/29/2025 4:45 PM CDT Therapy [facility] at [address], [address] [place] [address] Digna Valdivia, PT Malignant neoplasm of lower-outer quadrant of left breast of female, estrogen receptor positive (HCC) (Primary Dx); S/P breast reconstruction 01/29/2025 1:33 PM CDT - 01/29/2025 11:59 PM CDT Hospital Encounter [facility] ([facility]) [address] [place] [address] Chyna Gunter MD Malignant neoplasm of lower-outer quadrant of left breast of female, estrogen receptor positive (HCC) Discharge Disposition: Discharge to home or self care 01/24/2025 11:30 AM CDT Therapy [facility] at [address] Office [facility] [address] [place] [address] Digna Valdivia, PT Malignant neoplasm of lower-outer quadrant of left breast of female, estrogen receptor positive (HCC) (Primary Dx); S/P breast reconstruction 02/06/2025 Plan of Care Documentation [facility] at [address] Building [address], [address] [place] [address] 01/22/2025 8:30 AM CDT Therapy [address] Office [facility] [address] [place] [address] Digna Valdivia, PT S/P breast reconstruction (Primary Dx); Malignant neoplasm of lower-outer quadrant of left breast of female, estrogen receptor positive (HCC) 01/10/2025 10:00 AM CDT Office Visit [facility] Surgery [address] [place] [address] 6th [place] [address] Chyna Gunter MD Malignant neoplasm of lower-outer quadrant of left breast of female, estrogen receptor positive (HCC) (Primary Dx); Family history of breast cancer 12/25/2024 9:45 AM CDT Office Visit [facility] Surgery [address] [place] [address] 6th [place] [address] Malignant neoplasm of lower-outer quadrant of left breast of female, estrogen receptor positive (HCC) (Primary Dx) 12/17/2024 Telephone [facility] Surgeon 1 [place] [address] Mendoza Mccain MD 12/09/2024 5:29 AM CDT - 12/13/2024 9:05 AM CDT Hospital Encounter [address] [address] Chyna Gunter MD S/P breast reconstruction (Primary Dx) Discharge Disposition: Discharge to home or self care 12/10/2024 4:17 AM CDT Anesthesia Event [facility] Operating Room 1 [place] [address] Marva Ladd MD 12/10/2024 4:18 AM CDT Anesthesia Event [facility] Operating Room 1 [place] [phone] Linnea Solorzano MD Mehta, Divya, MD 12/10/2024 4:35 AM CDT - 12/10/2024 2:30 PM CDT Surgery [facility] Operating Room 1 [place] [address] Chyna Gunter MD RIGHT BREAST FLAP EXPLORATION 12/09/2024 7:30 AM CDT - 12/09/2024 4:55 PM CDT Surgery [facility] Operating [facility] [address] [place] [address] Chyna Gunter MD FREE FLAP DEEP INFERIOR EPIGASTRIC PERFORATORS 12/09/2024 7:29 AM CDT Anesthesia Event [facility] Operating Room [facility] [address] [place] [address] Jamaal Duff MD Boggeman, Katherine A., NP 11/14/2024 9:00 AM CDT Lab [facility] - Lab Collection [address] [facility] Floor 5 [place] [address] Malignant neoplasm of lower-outer quadrant of left breast of female, estrogen receptor positive (HCC) 11/14/2024 12:30 PM CDT Pre-Admission Testing [facility] for Preoperative Assessment and Planning [facility]) [address] [place] [address] 11/14/2024 9:15 AM CDT Lab [facility] Oncology Lab [address] [facility] Floor 5 [place] [address] Malignant neoplasm of lower-outer quadrant of left breast of female, estrogen receptor positive (HCC) 11/14/2024 10:15 AM CDT Office Visit [facility] Oncology [address] [facility] Floor 8 [place] [phone] Jameson Lopez MD Vitamin D deficiency (Primary Dx); Malignant neoplasm of lower-outer quadrant of left breast of female, estrogen receptor positive (HCC) from Last 3 Months Allergies Active Allergy Reactions Criticality Noted Date [...] 1 tablet (10 mg total) by mouth fiber picker before breakfast Active acetaminophen (TYLENOL) 500 mg [...] from 11/20/2023:Stage IA(pT1c, pN0(sn), cM0, G2, ER+, OH+, HER2-, Oncotype DX score: 9) - Unsigned Breast thickening 06/08/2017 Immunizations Immunization Administration Dates Next Due DT 07/12/2015 Influenza, Quadrivalent, Spl it, Intramuscular 06/04/2015,06/04/2014,08/28/2013 Influenza, Quadrivalent, Spl it, Preservative Free, Intramuscular 06/14/2018 Influenza, Trivalent, IM (MDV) 07/23/2012 Tdap 07/12/2015 Social History Tobacco Use Types Packs/Day Years [...] on file Sexual Orientation Not on file Last Filed Vital Signs Vital Sign Reading [...] Description 03/11/2025 1:10 PM CDT Hospital Encounter [facility] Operating [facility] ([facility]) [address] [place] [address] Chyna Gunter MD [phone] [address] 03/11/2025 1:10 PM CDT - 03/11/2025 3:20 PM CDT Surgery [facility] Operating Room [facility]) [address] [place] [address] Chyna Gunter MD [phone] [place] [address] EXCISION CYST/LESION/MASS - TRUNK- bilateral dog ear excision Scheduled Procedures Name Priority Associated Diagnoses Date/Ti me EXCISION CYST/LESION/MASS - TRUNK H/O bilateral mastectomy 03/11/2025 1:10 PM CDT FAT GRAFTING H/O bilateral mastectomy 03/11/2025 1:10 PM CDT Medical Devices Implanted Type Area Account Relationship Manager Device Identifier Shelf Expiration Date Model / Serial / Lot [employer] Magtrace Liquid Marker 10 Vial Carton [id number] - [id number] Implanted:Qty: 1 on 11/20/2023 by Raissa Serrano MD at [facility] Other - see comments Left: Breast [employer]PM[employer] 02/07/2025 [id number] / / [id number] [employer] Inc Guide 15ga Coaxial Needle Ultrasound Breast Boipsy Coil 1 Titanium Hydromark 4647-75-43-T1 - [id number] Implanted:Qty: 1 on 10/16/2023 at [facility] Left: Breast abcdexperts [id number] 4010-- 15-T1 / / [id number] Swood[employer] Allian [place] 2.5mm Ring Pin Ultrasonic Doppler 20mhz External Grinder Tender Anastomosis Latex Free 3593 - [id number] Implanted:Qty: 1 on 12/09/2024 by Chyna Gunter MD at [facility] Right: Breast Joggle[employer]ugs SHEEX Allian [id number] 05/10/2029 2753 / / [id number] [employer] Allian [place] 2.5mm Ring Pin Ultrasonic Doppler 20mhz External Grinder Tender Anastomosis Latex Free 8773 - [id number] Implanted:Qty: 1 on 12/09/2024 by Chyna Gunter MD at [facility] Left: Breast [employer] SHEEX Allian [id number] 05/10/2029 2753 / / [id number] Explanted Type Area Account Relationship Manager Device Identifier Shelf Expiration Date Model / Serial / Lot [employer] Face Worker Breast Ultra High Profile Round Smooth Artoura Plus 350cc Silicone [id number] - [id number] Implanted:Qty : 1 on 12/04/2023 by Chyna Gunter MD at [facility] Explanted:Qty : 1 on 01/03/2024 by Chyna Gunter MD at [facility] Left: Breast [employer] [id number] 10/08/[address] / / [id number] [employer] Face Worker Breast Ultra High Profile Round Smooth Artoura Plus 350cc Silicone [id number] - [id number] Implanted:Qty : 1 on 12/04/2023 by Chyna Gunter MD at [facility] Explanted:Qty : 1 on 01/03/2024 by Chyna Gunter MD at [facility] Right: Breast [employer] [id number] 10/08/2027 [id number] / / [id number] [employer] Implant Mammary Natrelle Te Smooth 577x-Ee-16-T With Fourte 864o-Fl-33-T - [id number] - [id number] Implanted:Qty : 1 on 06/17/2024 by Chyna Gunter MD at [facility] Explanted:Qty : 1 on 12/09/2024 at [facility] Right: Breast [employer] [id number] 10/09/2028 133S-FX-1 1-T / [id number] / [employer] Implant Mammary Natrelle Te Smooth 271c-Hh-57-T With Fourte 201e-Hk-43-T - [id number] - [id number] Implanted:Qty : 1 on 06/17/2024 by Chyna Gunter MD at [facility] Explanted:Qty : 1 on 12/09/2024 by Chyna Gunter MD at [facility] Left: Breast [employer] [id number] 05/09/2028 133S-FX-1 1-T / [id number] / Procedures Procedure Name Priority Date/Time Associated [...] METABOLIC PANEL Timed 12/09/2024 10:40 PM CDT OH AN PROCEDURE PLACEHOLDER Routine 12/09/2024 8:32 AM CDT OH AN PROCEDURE PLACEHOLDER Routine 12/09/2024 8:31 AM CDT OH AN ELECTIVE ENDOTRACHEAL AIRWAY Routine 12/09/2024 8:31 AM CDT CAPSULECTOMY BREAST 12/09/2024 7 :33 AM CDT H/O bilateral mastectomy Special Needs general, supine, 0.25%marcaine+epi, plastic tray, inpt vac, prevena plus, clips: micro/gem, small, medium, disposable acland clamps, hep saline+pap in anterior chamber syringe, doppler, microscope, micro instruments, SPY REMOVAL TISSUE CAR TESTER 12/09/2024 7:33 AM CDT H/O bilateral mastectomy [...] agrees with it. Electronically signed by: Isabelle Portillo M.D. Narrative 01/29/2025 2:29 PM CDT EXAMINATION: [...] * Check Sample (12/10/2024 11:00 AM CDT) ABO Rh A Positive [facility] OTHER 12/10/2024 11:0 0 AM CDT 12/10/2024 11:36 AM CDT Chyna Gunter MD LAB BLOOD ORDERA BLES Final Result [facility] [place] [address] [facility] * (ABNORMAL) CBC without differential (12/10/2024 9:56 AM CDT) WBC 8.66 3.80 - 9.90 K/cumm Hgb 9.4(L) 11.9 - 15.5 g/dL [facility] Hct 27.6(L) 35.6 - 45.5 % [facility] Plt 174 150 - 400 K/cumm [facility] MPV 10.8 9.1 - 12.3 fL [facility] RBC 3.19(L) 3.90 - 5.20 M/cumm [facility] MCV 86.5 81.3 - 96.4 fL [facility] MCH 29.5 27.1 - 33.3 pg [facility] MCHC 34.1 32.3 - 35.7 g/dL [facility] RDW CV 13.6 11.1 - 14.9 % [facility] RDW SD 42.7 35.7 - 48.1 fL [facility] NRBC abs 0.00 0.00 - 0.01 K/cumm [facility] Blood 12/10/2024 9:56 AM CDT 12/10/2024 10:34 AM CDT Chyna Gunter MD LAB BLOOD ORDERA BLES Final Result Performing Organization Address City/[facility]/ZIP Co de Phone Number [facility] Department [place] [address] * Type and screen (12/10/2024 9:56 AM CDT) [place], indirect Negative ABO Rh A Positive [facility] Blood 12/10/2024 9:56 AM CDT 12/10/2024 10:50 AM CDT Narrative [facility] - 12/10/2024 11:50 AM CDT Has the patient had Daratumumab or Isatuximab in the past 6 months?->Unknown Chyna Gunter MD LAB BLOOD BANK T EST ORDERABLES Final Result [facility] Department [place] [address] * Airway (12/10/2024 4:38 AM CDT) Narrative [...] MD LAB BLOOD ORDERA BLES Final Result [facility] Department [place] [address] * (ABNORMAL) Differential, auto (12/09/2024 10:40 PM CDT) Neutrophil abs 10.16(H) 1.50 - 6.50 K/cumm Imm gran abs 0.05 0.00 - 0.10 K/cumm [facility] Lymphocyte abs 0.69(L) 0.80 - 3.30 K/cumm [facility] Monocyte abs 0.73 0.20 - 0.80 K/cumm [facility] Eosinophil abs 0.00 0.00 - 0.50 K/cumm [facility] Basophil abs 0.01 0.00 - 0.10 K/cumm [facility] Neutrophil pct 87.3 % [facility] Comment: Interpretive Data Percent cell count reference ranges are not reported, since discordance with absolute values may lead to misinterpretation of CBC data. Current Interpretive Data was last revised on 2017. Imm gran pct 0.4 % [facility] Comment: Interpretive Data Percent cell count reference ranges are not reported, since discordance with absolute values may lead to misinterpretation of CBC data. Current Interpretive Data was last revised on 2017. Lymphocyte pct 5.9 % [facility] Comment: Interpretive Data Percent cell count reference ranges are not reported, since discordance with absolute values may lead to misinterpretation of CBC data. Current Interpretive Data was last revised on 2017. Monocyte pct 6.3 % [facility] Comment: Interpretive Data Percent cell count reference ranges are not reported, since discordance with absolute values may lead to misinterpretation of CBC data. Current Interpretive Data was last revised on 2017. Eosinophil pct 0.0 % [facility] Comment: Interpretive Data Percent cell count reference ranges are not reported, since discordance with absolute values may lead to misinterpretation of CBC data. Current Interpretive Data was last revised on 2017. Basophil pct 0.1 % [facility] Comment: Interpretive Data Percent cell count reference ranges are not reported, since discordance with absolute values may lead to misinterpretation of CBC data. Current Interpretive Data was last revised on 2017. Blood 12/09/2024 10:4 0 PM CDT 12/09/2024 11:12 PM CDT Chyna Gunter MD LAB BLOOD ORDERA BLES Final Result [facility] Department [place] [address] * (ABNORMAL) CBC with auto differential (12/09/2024 10:40 PM CDT) WBC 11.64(H) 3.80 - 9.90 K/cumm Hgb 9.9(L) 11.9 - 15.5 g/dL [facility] Hct 28.3(L) 35.6 - 45.5 % [facility] Plt 158 150 - 400 K/cumm [facility] MPV 10.8 9.1 - 12.3 fL [facility] RBC 3.35(L) 3.90 - 5.20 M/cumm [facility] MCV 84.5 81.3 - 96.4 fL [facility] MCH 29.6 27.1 - 33.3 pg [facility] MCHC 35.0 32.3 - 35.7 g/dL [facility] RDW CV 13.3 11.1 - 14.9 % [facility] RDW SD 41.4 35.7 - 48.1 fL [facility] NRBC abs 0.00 0.00 - 0.01 K/cumm [facility] Blood 12/09/2024 10:4 0 PM CDT 12/09/2024 11:12 PM CDT Chyna Gunter MD LAB BLOOD ORDERA BLES Final Result [facility] Department [place] [address] * (ABNORMAL) Basic metabolic panel (12/09/2024 10:40 PM CDT) [facility] Sodium 142 135 - 145 mmol/L Potassium, pl 3.8 3.3 - 4.9 mmol/L [facility] Chloride 107 97 - 110 mmol/L [facility] CO2 27 22 - 32 mmol/L [facility] Anion gap 8 2 - 15 mmol/L [facility] BUN 8 6 - 25 mg/dL [facility] Creatinine 0.63 0.60 - 1.10 mg/dL [facility] Glucose 139 70 - 199 mg/dL [facility] Comment: Interpretive Data Fasting glucose >/= 126 [...] 2022. Calcium 8.3(L) 8.5 - 10.3 mg/dL [facility] Blood 12/09/2024 10:4 0 PM CDT 12/09/2024 11:11 PM CDT Chyna Gunter MD LAB BLOOD ORDERA BLES Final Result Performing Organization Address City/[facility]/ZIP Co de Phone Number [facility] Department [place] [address] * OH AN PROCEDURE PLACEHOLDER (12/09/2024 8:32 AM CDT) Stephanie Jones CRNA - 12/09/2024 8:32 AM CDT Stephanie Perez CRNA 12/09/2024 8:33 AM Peripheral IV Catheter Patient location: OR Staff: Placed by: SILO WORKER: Stephanie Perez CRNA Preprocedure prep: Prep solution: alcohol PPE: gloves PIV line: Laterality: right Site: wrist Catheter size: 18 g Technique: direct visualization and anatomical landmarks Procedure details: good blood return Number of attempts: 1 Assessment: Events: patient tolerated procedure well with no complications Jamaal Duff MD ANESTHESIA ORDERABLES Final Result * OH AN ELECTIVE ENDOTRACHEAL AIRWAY, OH AN PROCEDURE PLACEHOLDER (12/09/2024 8:31 AM CDT) Narrative Stephanie Perez CRNA - 12/09/2024 8:31 AM CDT Stephanie Perez CRNA 12/09/2024 8:32 AM Airway Patient location: OR Urgency: elective Date/time: 12/09/2024 7:46 AM Indications for airway management: anesthesia Difficult airway: no Staff: Supervising provider: Jamaal Duff MD Placed by: SILO WORKER: Stephanie Perez CRNA Emergent airway documentation: Risks [...] POCT hCG, urine (12/09/2024 6:07 AM CDT) Pathologist [facility] HCG, ur, POC Negative Negative Lot Number [id number] QC Backgroud Clear Acceptable QC Control Line Acceptable Urine 12/09/2024 6:07 AM CDT Holli Staples NP POINT OF CARE TEST ORDE RABLES Final Result * eGFR (11/14/2024 9:09 AM CDT) [facility] eGFR >90 >=60 mL/min/1. 73 m2 Comment: [...] MD LAB BLOOD ORDERABLES Final Resul t [facility] RE[facility] Department of Laboratories [place], [place] [id number] * Differential, auto (11/14/2024 9:09 AM CDT) Pathologist [facility] Neutrophil abs 2.38 1.50 - 6.50 K/cumm Comment:Testing performed by : [facility], [address] [place] [phone] Lymphocyte abs 1.74 0.80 - 3.30 K/cumm [facility] Comment:Testing performed by : [facility], [address] [place] [phone] Monocyte abs 0.55 0.20 - 0.80 K/cumm [facility] Comment:Testing performed by : [facility], [address] [place], [place] [id number] Eosinophil abs 0.10 0.00 - 0.50 K/cumm [facility] Comment:Testing performed by : [facility], [address] [place], [place] [id number] Basophil abs 0.08 0.00 - 0.10 K/cumm [facility] Comment:Testing performed by : [facility], [address] [place], [place] [phone] Neutrophil pct 49.1 % [facility] Comment: Interpretive Data Percent cell count reference ranges are not reported, since discordance with absolute values may lead to misinterpretation of CBC data. Current Interpretive Data was last revised on 2017. Testing performed by: [facility], [address] [place], [place] [phone] Lymphocyte pct 36.0 % [facility] Comment: Interpretive Data Percent cell count reference ranges are not reported, since discordance with absolute values may lead to misinterpretation of CBC data. Current Interpretive Data was last revised on 2017. Testing performed by: [facility], [address] [place], [place] [phone] Monocyte pct 11.3 % [facility] Comment: Interpretive Data Percent cell count reference ranges are not reported, since discordance with absolute values may lead to misinterpretation of CBC data. Current Interpretive Data was last revised on 2017. Testing performed by: [facility], [address] [place] [phone] Eosinophil pct 2.0 % [facility] Comment: Interpretive Data Percent cell count reference ranges are not reported, since discordance with absolute values may lead to misinterpretation of CBC data. Current Interpretive Data was last revised on 2017. Testing performed by: [facility], [address] [place] [address] Basophil pct 1.7 % [facility] Comment: Interpretive Data Percent cell count reference ranges are not reported, since discordance with absolute values may lead to misinterpretation of CBC data. Current Interpretive Data was last revised on 2017. Testing performed by: [facility], [address] [place] [address] Blood 11/14/2024 9:09 AM CDT 11/14/2024 9:10 AM CDT Jameson Lopez MD LAB BLOOD ORDERABLES Final Resul t [facility] Department [place] [address] * CBC with auto differential (11/14/2024 9:09 AM CDT) WBC 4.85 3.80 - 9.90 K/cumm Comment:Testing performed by : [facility], [address] [place] [address] Hgb 13.3 11.9 - 15.5 g/dL [facility] Comment:Testing performed by : [facility], [address] [place] [address] Hct 39.6 35.6 - 45.5 % [facility] Comment:Testing performed by : [facility], [address] [place] [address] Plt 223 150 - 400 K/cumm [facility] Comment:Testing performed by : [facility], [address] [place] [address] MPV 8.6 6.8 - 10.4 fL [facility] Comment:Testing performed by : [facility], [address] [place] [address] RBC 4.66 3.90 - 5.20 M/cumm [facility] Comment:Testing performed by : [facility], [address] [place] [address] MCV 85.0 81.3 - 96.4 fL [facility] Comment:Testing performed by : [facility], [address] [place], [place] [phone] MCH 28.4 27.1 - 33.3 pg [facility] Comment:Testing performed by : [facility], [address] [place] [address] MCHC 33.5 32.3 - 35.7 g/dL [facility] Comment:Testing performed by : [facility], [address] [place] [phone] RDW CV 13.6 11.1 - 14.9 % [facility] Comment:Testing performed by : [facility], [address] [place], [place] [phone] NRBC abs 0.00 0.00 - 0.01 K/cumm MARILYNN [facility] Comment:Testing performed by : [facility], [address] [place], [place] [phone] Blood 11/14/2024 9:09 AM CDT 11/14/2024 9:10 AM CDT Jameson Lopez MD LAB BLOOD ORDERABLES Final Resul t Performing Organization Address City/[facility]/ZIP Co de Phone Number [facility] Department [place] [address] * (ABNORMAL) Vitamin D 25 hydroxy (11/14/2024 9:09 AM CDT) Vitamin D 25-OH 28(L) 30 - 80 ng/mL Blood 11/14/2024 9:09 AM CDT 11/14/2024 9:12 AM CDT Jameson Lopez MD LAB BLOOD ORDERABLES Final Resul t [facility] Department [place] [address] * Comprehensive metabolic panel (11/14/2024 9:09 AM CDT) Sodium 142 135 - 145 mmol/L Potassium, pl 3.8 3.3 - 4.9 mmol/L [facility] Chloride 103 97 - 110 mmol/L [facility] CO2 30 22 - 32 mmol/L [facility] Anion gap 9 2 - 15 mmol/L [facility] BUN 11 6 - 25 mg/dL [facility] Creatinine 0.71 0.60 - 1.10 mg/dL [facility] Glucose 77 70 - 199 mg/dL [facility] Comment: Interpretive Data Fasting glucose >/= 126 [...] 2022. Calcium 9.7 8.5 - 10.3 mg/dL [facility] Bilirubin, total 0.2 0.1 - 1.2 mg/dL [facility] [facility] Protein, pl 6.8 6.5 - 8.5 g/dL [facility] Albumin 4.3 3.5 - 5.0 g/dL [facility] Alk phos 71 40 - 130 Units/L [facility] ALT 11 7 - 45 Units/L [facility] AST 18 10 - 45 Units/L [facility] Blood 11/14/2024 9:09 AM CDT 11/14/2024 9:12 AM CDT us Jamesonarleen Lopez MD LAB BLOOD ORDERABLES Final Resul t MARILYNN REYNA [facility] Department [place] [address] * Hepatitis panel, acute Blood (03/28/2024 9:46 AM CDT) Hep A IgM Nonreactive Nonreactive Hep B core IgM Nonreactive Nonreactive [facility] Hep C Ab Nonreactive Nonreactive [facility] Comment:Antibodies to HCV no t detected. Does NOT exclude the possibility of recent exposure to HCV. Current interpretive data was last revised on 22 HepBsAg Nonreactive Nonreactive [facility] Blood 03/28/2024 9:46 AM CDT 03/28/2024 10:14 AM CDT us Jameson Lopez MD LAB MICROBIOLOGY - GENERAL ORDER LOCO Final Result [facility] Department [place] [address] * Screening Mammogram Bilateral W [place] (04/06/2023 2:57 PM CDT) Anatomical Region Laterality Modality Breast Bilateral Mammography Narrative 04/07/2023 10:06 AM CDT Mammogram Technique: Bilateral Digital Breast Tomosynthesis, Bilateral C-view 2D Screening mammogram. Views obtained: bilateral craniocaudal and bilateral mediolateral oblique. Computer Aided Detection was performed. Mammogram Findings: The present examination has been compared to prior imaging studies performed at [facility] on 01/23/2020, 01/28/2021 and 02/10/2022. The breasts [...] compared to prior imaging studies performed at [facility] on 01/23/2020, 01/28/2021 and 02/10/2022. The breasts [...] CATEGORY 0: Incomplete: Need additional imaging evaluation. us Deepa Mims MD PhD IMG MAMMO PROCEDURES Final Result from Last 3 Months or Most Recently Relevant to Health Maintenance Insurance [employer] HEALTHCARE [facility] OPEN ACCESS [facility] CHOICE [facility] H[facility]/PPO Address: [address] [address] [place] [address] [facility] Address: [address] [address] [place] [address] [facility] CHOICE [facility] Address: [address] [facility] Address: [address] [address] [place] [address] Advance Directives For more information, please contact: [phone] * Full Code (Latest Code Status on File) Date Activated Date Inactivated Comments 12/09/2024 9:39 PM 12/13/2024 1:21 PM * Full Code Date Activated Date Inactivated Comments 01/01/2024 2:32 PM 01/02/2024 5:26 AM Care Teams [employer] Buy[employer] Relationship Specialty Start Date End Date Ashley Shukla MD [address] [place] [address] PCP - General 05/31/17
== END 2025-02-10 14:02 | disposition home or self-care (01) ==
PROVIDERS: PCP Internal Medicine; Visit Provider Obstetrics & Gynecology Gynecology
DX: Z78.0 Asymptomatic menopausal state (principal)
CPT/HCPCS: 77080